=== PATIENT | female | born 1960 | race Caucasian/White ===

== ENCOUNTER 2016-08-31 04:10 | Inpatient (IN) | payer MEDICARE, OTHER ==
[~2016-08-31] VITALS: Ht 152.4 cm; Wt 58.0 kg
[2016-08-31 04:27] VITALS: PULSE 100; RESP 16; TEMP 98.9
[2016-08-31 04:35] VITALS: BP 149/82; PULSE 103; RESP 16; O2SAT 100
[2016-08-31] MEDS ORDERED: LORazepam 2 MG/ML VIAL IM ONE (04:45)
[2016-08-31] MEDS ORDERED: HALOPERIDOL LACTATE 5 MG/ML AMP IM ONE ×2 (04:45→22:30)
--- NOTE | 2016-08-31 04:45 | PD ---
HPI Chief Complaint: Altered Mental Status Time Seen by Provider: 04:36 Travel History International Travel<30 days: No Contact w/Intl Traveler<30days: No Traveled to known affect area: No History of Present Illness HPI 56-year-old female presents to the ER brought in by PD and EMS as a Goncalves act, according to her family has had 1 week history of "departure from reality", agitated behavior, argumentative towards family, disoriented. She apparently became very agitated and tried to attack EMS and PD, had tried to bite them. She is currently fairly disoriented and not cooperative with exam, has to be restrained. Modifying Factors: None Associated Signs & Symptoms: Agitation, disorientation, altered mental status, Goncalves act Risk Factors: Unknown PFSH Past Medical History Medical History: Unable to Obtain Past Surgical History Surgical History: Unable to Obtain Social History Alcohol Use: No Tobacco Use: No Substance Use: No Allergies-Medications (Allergen,Severity, Reaction): Coded Allergies: UNOBTAINABLE (Unverified , 08/31/16) Agitated, disoriented and combative Reported Meds & Prescriptions Reported Meds & Active Scripts Active Reported Hydralazine (Hydralazine HCl) 25 Mg Tab 25 Mg PO BID Take with a meal Morphine ER (Morphine Sulfate) 15 Mg Tab 15 Mg PO Q8H Review of Systems ROS Limitations: Altered Mental Status Physical Exam Narrative GENERAL: Well-nourished, well-developed middle age white female patient who is agitated, disoriented, combative, restrained in the ER. Awake, alert. SKIN: Warm and dry. HEAD: Normocephalic. EYES: No scleral icterus. No injection or drainage. NECK: Supple, trachea midline. CARDIOVASCULAR: Regular rate and rhythm without murmurs, gallops, or rubs. RESPIRATORY: Breath sounds equal bilaterally. No accessory muscle use. GASTROINTESTINAL: Abdomen soft, non-tender, nondistended. MUSCULOSKELETAL: No cyanosis, or edema. BACK: Nontender without obvious deformity. No CVA tenderness. NEUROLOGICAL: Awake and alert, disoriented and agitated. Cranial nerves II through XII intact. Motor and sensory grossly within normal limits. Five out of 5 muscle strength in all muscle groups. Normal speech. Data Data Last Documented VS Vital Signs Date Time Temp Pulse Resp B/P Pulse Ox O2 Delivery O2 Flow Rate FiO2 08/31/16 04:35 103 16 149/82 100 08/31/16 04:27 98.9 Orders Complete Blood Count With Diff (08/31/16 04:36) Comprehensive Metabolic Panel (08/31/16 04:36) Thyroid Stimulating Hormone (08/31/16 04:36) Urinalysis - C+S If Indicated (08/31/16 04:36) Iv Access Insert/Monitor (08/31/16 04:36) Urinary Catheter Insert/Apply (08/31/16 04:36) Psych Screen (08/31/16 04:36) Haloperidol Inj (Haldol Inj) (08/31/16 04:45) Lorazepam Inj (Ativan Inj) (08/31/16 04:45) Restraints Non-Violent MICHAEL.Q3H (08/31/16 04:36) Drug Screen, Random Urine (08/31/16 04:36) Alcohol (Ethanol) (08/31/16 04:36) Ns + Kcl 20 Meq Inj (Ns + Kcl 20 Meq Inj (08/31/16 06:00) Ct Brain W/O Iv Contrast(Rout) (08/31/16 05:50) Labs Laboratory Tests Test 08/31/16 04:40 White Blood Count 8.7 TH/MM3 Red Blood Count 4.66 MIL/MM3 Hemoglobin 14.2 GM/DL Hematocrit 40.2 % Mean Corpuscular Volume 86.3 FL Mean Corpuscular Hemoglobin 30.5 PG Mean Corpuscular Hemoglobin 35.3 % Concent Red Cell Distribution Width 12.4 % Platelet Count 302 TH/MM3 Mean Platelet Volume 8.7 FL Neutrophils (%) (Auto) 70.3 % Lymphocytes (%) (Auto) 20.3 % Monocytes (%) (Auto) 8.1 % Eosinophils (%) (Auto) 0.5 % Basophils (%) (Auto) 0.8 % Neutrophils # (Auto) 6.1 TH/MM3 Lymphocytes # (Auto) 1.8 TH/MM3 Monocytes # (Auto) 0.7 TH/MM3 Eosinophils # (Auto) 0.0 TH/MM3 Basophils # (Auto) 0.1 TH/MM3 CBC Comment DIFF FINAL Differential Comment Urine Color YELLOW Urine Turbidity CLEAR Urine pH 5.5 Urine Specific Prospect 1.006 Urine Protein NEG mg/dL Urine Glucose (UA) NEG mg/dL Urine Ketones TRACE mg/dL Urine Occult Blood NEG Urine Nitrite NEG Urine Bilirubin NEG Urine Urobilinogen LESS THAN 2.0 MG/DL Urine Leukocyte Esterase NEG Urine RBC LESS THAN 1 /hpf Urine WBC 1 /hpf Urine Squamous Epithelial 1 /hpf Cells Urine Hyaline Casts 4 /lpf Microscopic Urinalysis Comment CULT NOT INDICATED Sodium Level 135 MEQ/L Potassium Level 3.0 MEQ/L Chloride Level 101 MEQ/L Carbon Dioxide Level 19.1 MEQ/L Anion Gap 15 MEQ/L Blood Urea Nitrogen 10 MG/DL Creatinine 0.63 MG/DL Estimat Glomerular Filtration 98 ML/MIN Rate Random Glucose 105 MG/DL Calcium Level 9.0 MG/DL Total Bilirubin 0.7 MG/DL Aspartate Amino Transf 21 U/L (AST/SGOT) Alanine Aminotransferase 34 U/L (ALT/SGPT) Alkaline Phosphatase 60 U/L Total Protein 7.3 GM/DL Albumin 4.2 GM/DL Thyroid Stimulating Hormone 0.211 uIU/ML 3rd Gen Urine Opiates Screen POS Urine Barbiturates Screen NEG Urine Amphetamines Screen NEG Urine Benzodiazepines Screen NEG Urine Cocaine Screen NEG Urine Cannabinoids Screen NEG Ethyl Alcohol Level LESS THAN 3 MG/DL MDM Medical Decision Making Medical Screen Exam Complete: Yes Emergency Medical Condition: Yes Medical Record Reviewed: Yes Interpretation(s) Last [address] 08/31/16 0550 Signed Impressions: Service Date/Time: Wednesday, August 31, 2016 06:37 - CONCLUSION: No acute disease. Jitendra Berrios MD Laboratory Tests Test 08/31/16 04:40 Neutrophils (%) (Auto) 70.3 % (16.0-70.0) Monocytes (%) (Auto) 8.1 % (0.0-8.0) Urine Ketones TRACE mg/dL (NEG) Sodium Level 135 MEQ/L (136-145) Potassium Level 3.0 MEQ/L (3.5-5.1) Carbon Dioxide Level 19.1 MEQ/L (21.0-32.0) Thyroid Stimulating Hormone 0.211 uIU/ML 3rd Gen (0.358-3.740) Urine Opiates Screen POS (NEG) Differential Diagnosis Altered mental status, agitationpsychiatric issues versus metabolic issues versus intoxication versus substance use Narrative Course Patient was given Haldol and Ativan in the ER to help calm her agitation. Lab work shows a low potassium and IV's KCl was given in the ER. Case is medically clear for psychiatric evaluation. Diagnosis Primary Impression: Psychosis Disposition: 65 DISC TO PSYCH CARE FACILITY Condition: Stable Deacon Luis MD Aug 31, 2016 04:45
[2016-08-31 04:57] LABS: AUTOMATED NEUTROPHIL # 6.1 TH/MM3 (1.8-7.7); BASOPHIL # 0.1 TH/MM3 (0-0.2); BASOPHIL % 0.8 % (0.0-2.0); EOSINOPHIL % 0.5 % (0.0-4.0); HEMATOCRIT 40.2 % (35.0-46.0); HEMO FLAGS DIFF FINAL; LYMPH % 20.3 % (9.0-44.0); LYMPHOCYTE # 1.8 TH/MM3 (1.0-4.8); MEAN CELL VOLUME 86.3 FL (80.0-100.0); MEAN CORPUSCULAR HEMOGLOBIN 30.5 PG (27.0-34.0); MEAN CORPUSCULAR HGB CONC 35.3 % (32.0-36.0); MONO % 8.1 % (0.0-8.0); NEUT % 70.3 % (16.0-70.0); PLATELET COUNT 302 TH/MM3 (150-450); RED BLOOD COUNT 4.66 MIL/MM3 (4.00-5.30); RED CELL DISTRIBUTION WIDTH 12.4 % (11.6-17.2); WHITE BLOOD COUNT 8.7 TH/MM3 (4.0-11.0)
[2016-08-31 05:03] LABS: AMPHETAMINE, URINE NEG (NEG); BARBITURATES, URINE NEG (NEG); COCAINE, URINE NEG (NEG)
[2016-08-31 05:05] LABS: BLOOD, URINE NEG (NEG); GLUCOSE,URINE NEG (NEG); HYALINE CAST, URINE 4 /lpf (RARE); KETONE, URINE TRACE mg/dL (NEG); NITRITE,URINE NEG (NEG); PH, URINE 5.5 (5.0-8.5); SQUAMOUS EPITHELIAL CELL URINE 1 /hpf (0-5); URINE COLOR YELLOW (YELLW/STRAW)
[2016-08-31 05:06] LABS: COMMENT (UR) CULT NOT INDICATED; CULTURE IF INDICATED CULT NOT INDICATED
[2016-08-31 05:30] LABS: ANION GAP 15 MEQ/L (5-15)
[2016-08-31 05:39] LABS: ALKALINE PHOSPHATASE 60 U/L (45-117); ALT (GPT) 34 U/L (10-53); AST (GOT) 21 U/L (15-37); BICARBONATE 19.1 MEQ/L (21.0-32.0); BLOOD UREA NITROGEN 10 MG/DL (7-18); CHLORIDE 101 MEQ/L (98-107); GLOMERULAR FILTRATION RATE 98 ML/MIN (>89); SODIUM (NA) 135 MEQ/L (136-145); TOTAL BILIRUBIN ADULT 0.7 MG/DL (0.2-1.0)
[2016-08-31] MEDS ORDERED: NS + KCL 20 MEQ INJ 1,000 ML IV ONE (06:00)
--- NOTE | 2016-08-31 06:56 | RADRPT ---
EXAM DATE/TIME: 08/31/2016 06:37 [facility] COMPARISON: No previous studies available for comparison. INDICATIONS : Altered mental status. RADIATION DOSE: 32.21 CTDIvol (mGy) MEDICAL HISTORY : Non-responsive. SURGICAL HISTORY : Non-responsive. ENCOUNTER: Initial ACUITY: 1 week PAIN SCALE: Non-responsive LOCATION: cranial TECHNIQUE: Multiple contiguous axial images were obtained of the head. Using automated exposure control and adj ustment of the mA and/or kV according to patient size, radiation dose was kept as low as reasonably a chievable to obtain optimal diagnostic quality images. FINDINGS: No signs of intracranial hemorrhage, acute infarct, or mass. There is mild volume loss of the white m atter in the parietal and occipital regions with slight associated ventriculomegaly. There are no fra ctures. CONCLUSION: No acute disease. Jitendra Berrios MD on August 31, 2016 at 6:54 Board Certified Radiologist. This report was verified electronically.
[2016-08-31] MEDS ORDERED: MORP1TAB24 PO (06:57)
[2016-08-31] MEDS ORDERED: HYDR25TA35 PO (06:57)
[2016-08-31 11:44] VITALS: BP 129/65; PULSE 84; RESP 18; TEMP 98.2; O2SAT 98
[2016-08-31 15:05] VITALS: BP 150/78; PULSE 80; RESP 18; O2SAT 98
[2016-08-31 17:39] VITALS: BP 148/78; PULSE 72; RESP 18; O2SAT 98
[2016-08-31 22:07] VITALS: BP 145/67; PULSE 83; RESP 19; O2SAT 99
[2016-08-31] MEDS ORDERED: diphenhydrAMINE HCL 50 MG/ML VIAL IM ONE (22:30)
[2016-09-01 02:10] VITALS: BP 125/75; PULSE 81; RESP 18; O2SAT 99
[2016-09-01 06:20] VITALS: BP 150/90; PULSE 74; RESP 18; O2SAT 97
--- NOTE | 2016-09-01 09:29 | PD ---
History of Present Illness Chief Complaint: Altered Mental Status Time Seen by Provider: 09:00 Travel History International Travel<30 Days: No Contact w/Intl Traveler<30days: No Known affected area: No Legal Status Legal Status: Goncalves Act History of Present Illness: History of Present Illness HPI 56-year-old female with no previous psychiatric history who presents to the ER brought in as a Goncalves act. As per the BA report the police were called by her roommate of 30 years reporting that for the past week " the subject has been acting strange, believes that everyone is out to get her and has been agitated and yelling at them, making threats to harm her sister. " When the police arrived she became agitated and picked up a drumstick and held it up like a weapon. Upon arrival to ED she has been agitated and required restraints as well as ETO. As per nursing report she has been intermittently agitated here in [facility]. This morning she is sitting in her room. Awake and alert. She is calm but exhibits lability of mood. Her thoughts are disorganized and I am unable to obtain a full clinical evaluation. She states " " I'm here because I couldn't find anyone to trust. I'm not allowed to be happy. Everywhere I go I see someone who looks like you". As per information from RN in [facility] she has not had any previous psychiatric symptoms. Reviewing her record it is reported that she stopped drinking 3 months ago. As per EMR review no previous contact with [facility]. Negative toxicology except for opiates which are prescribed to her. PFSH Past Medical History Medical History: Unable to Obtain Depression: Yes Cerebral Palsy: Yes Sleep Apnea: Yes (HAS NOT BEEN USING HER C PAP RECENTLY) Thyroid Disease: Yes (HYPERTHYROID) Past Surgical History Surgical History: Unable to Obtain Psychiatric History Psychiatric History Hx Psychiatric Treatment: NONE History of Inpatient Treatment: No Guns or firearms in home: No Social History Born in [place]. Moved to [place] 6 months ago. Lives w her boyfriend of 30 years. On disability Hx Alcohol Use: No (QUIT 3 MONTHS AGO) Hx Tobacco Use: No Hx Substance Use: No Hx of Substance Use Treatment: Yes Family Psychiatric History Unable to obtain Allergies-Medications (Allergen,Severity, Reaction): Coded Allergies: No Known Allergies (Unverified , 08/31/16) Reported Meds & Prescriptions Reported Meds & Active Scripts Active Reported Hydralazine (Hydralazine HCl) 25 Mg Tab 25 Mg PO BID Take with a meal Morphine ER (Morphine Sulfate) 15 Mg Tab 15 Mg PO Q8H Exam Exam Limitations: Psychotic Alert: Yes Mather: Person, Place Mood: Other (l;ability of mood) Affect: Other (lability of affect) Speech: Clear, Illogical, Flight of Ideas Eye Contact: Normal Memory Intact: Comment (not formally tested) Hallucinations: Other (does not appear to be responding to any) Delusions: Yes Delusion Type: Paranoid Suicidal: Ideation (negative) Homicidal: Ideation (negative) Insight/Judgement poor. Impiared MDM Medical Decision Making Medical Record Reviewed: Yes Assessment/Plan 56 year old female with history of 1 week of impaired sleep, paranoia, agitation. She has required restraints as well as ETO since her admission to ED. At this time the patient remains significantly impaired with inability to fully participate in evaluation due to continued symptoms of disorganization. She requires inpatient treatment for further evaluation, to maintain safety and to initiate treatment. Orders Diet Regular Basic (08/31/16 Lunch) Diet Regular Basic (08/31/16 Dinner) Haloperidol Inj (Haldol Inj) (08/31/16 22:30) Diphenhydramine Inj (Benadryl Inj) (08/31/16 22:30) Diet Regular Basic (09/01/16 Breakfast) Results Vital Signs Date Time Temp Pulse Resp B/P Pulse Ox O2 Delivery O2 Flow Rate FiO2 09/01/16 06:20 74 18 150/90 97 Room Air 09/01/16 02:10 81 18 125/75 99 Room Air 08/31/16 22:07 83 19 145/67 99 Room Air 08/31/16 17:39 72 18 148/78 98 Room Air 08/31/16 15:05 80 18 150/78 98 Room Air 08/31/16 11:44 98.2 84 18 129/65 98 Room Air Diagnosis Primary Impression: Psychosis Admitting Information Admitting Physician Requests: Admit (Dr. 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
[2016-09-01] MEDS ORDERED: MAGNESIUM HYDROXIDE SUSP 30 ML CUP PO PRN (09:45)
[2016-09-01] MEDS: hydrALAZINE HCL 25 MG TAB PO SCH ×2 (09:45→19:56)
[2016-09-01] MEDS ORDERED: ALUMINUM/MAGNESIUM/SIMETH 30 ML CUP PO PRN (09:45)
[2016-09-01 10:58] VITALS: BP 150/90; PULSE 74; RESP 18; O2SAT 97
[2016-09-01 11:25] VITALS: BP 136/67; PULSE 89; RESP 18; TEMP 98.5; O2SAT 99
--- NOTE | 2016-09-01 12:35 | HHI.HP ---
Reason for Admit/HPI Reason for Admission According to reports of patient's roommate, she has become increasingly bizarre and psychotic over the last several weeks. She was also unable to provide a cogent history to this physician upon interview. She does not understand why she is in the hospital. She is unable to provide information regarding who she lives with her what her behavior has been like over the last several weeks. When evaluated in the emergency department, the patient was noted to exhibit loose associations and delusional thinking. She also demonstrates a very labile affect and has been repeatedly agitated to the point of dangerousness. She cannot or will not cooperate with this physician's interview at this time. As noted in the emergency department, she is positive for marijuana. Admission Status: Goncalves Act Physical Exam Physical Exam GENERAL: SKIN: Warm and dry. HEAD: Atraumatic. Normocephalic. EYES: Pupils equal and round. No scleral icterus. No injection or drainage. ENT: No nasal bleeding or discharge. Mucous membranes pink and moist. NECK: Trachea midline. No JVD. CARDIOVASCULAR: Regular rate and rhythm. RESPIRATORY: No accessory muscle use. Clear to auscultation. Breath sounds equal bilaterally. GASTROINTESTINAL: Abdomen soft, non-tender, nondistended. Hepatic and splenic margins not palpable. MUSCULOSKELETAL: Extremities without clubbing, cyanosis, or edema. No obvious deformities. NEUROLOGICAL: Awake and alert. No obvious cranial nerve deficits. Motor grossly within normal limits. Five out of 5 muscle strength in the arms and legs. Normal speech. PSYCHIATRIC: Appropriate mood and affect; insight and judgment normal. Vital Signs Vital Signs Date Time Temp Pulse Resp B/P Pulse Ox O2 Delivery O2 Flow Rate FiO2 09/01/16 11:25 98.5 89 18 136/67 99 09/01/16 10:58 74 18 150/90 97 Room Air 09/01/16 06:20 74 18 150/90 97 Room Air 09/01/16 02:10 81 18 125/75 99 Room Air 08/31/16 22:07 83 19 145/67 99 Room Air 08/31/16 17:39 72 18 148/78 98 Room Air 08/31/16 15:05 80 18 150/78 98 Room Air Coded Allergies: No Known Allergies (Unverified , 08/31/16) Assessment/Plan Plan * Involve patient in individual, family and milieu therapies. * Evaluate medication regiment. * Observe and evaluate for appropriate behavior on unit. * Discuss and plan for appropriate after care. Goals * Evaluate symptoms of current psychiatric problem(s) * Stabilize behaviors and improve functionality * Diminish relationship conflicts * Improve academic performance Discharge Criteria * Denies suicidal ideation * Denies homicidal ideation * No evidence of psychosis Dennis Fowler MD Sep 01, 2016 12:35
--- NOTE | 2016-09-01 12:53 | HHI.HP ---
Provisional Diagnosis Admission Date Sep 01, 2016 at 09:35 [place] I. Psychotic disorder Certification of Person's Competence To Provide Express and Informed Consent I have personally examined Lesly Worthington , a person being served at [facility] on, Sep 01, 2016 12:43. Express and informed consent means consent voluntarily given in writing, by a competent person, after sufficient explanation and disclosure of the subject matter involved to enable the person to make a knowing and willful decision without any element of force, fraud, deceit, duress, or other form of constraint or coercion. This person is 18 years of age or older, is not now known to be incompetent to consent to treatment with a guardian advocate, and does not have a health care surrogate or proxy currently making medical treatment decisions. I have found this person to be one of the following: [] Competent to provide express and informed consent, as defined above, for voluntary admission to this facility and is competent to provide express and informed consent for treatment. He/she has the consistent capacity to make well reasoned, willful, and knowing decisions concerning his or her medical or mental health treatment. The person fully and consistently understands the purpose of the admission for examination/placement and is fully capable of personally exercising all rights [place] [x] Incompetent to provide express and informed consent to voluntary admission, and this is incompetent to provide express and informed consent to treatment. The person must be transferred to involuntary status and a petition for a guardian advocate filed with the Circuit Court. [] Refusing to provide express and informed consent to voluntary admission but is competent to provide express and informed consent for treatment. The person must be discharged or transferred to involuntary status. Form shall be completed within 24 hours of a person's arrival at the receiving facility and filed in the clinical record of each person: 1. Admitted on a voluntary basis 2. Permitted to provide express and informed consent to his/her own treatment 3. Allowed to transfer from involuntary to voluntary status 4. Prior to permitting a person to consent to his or her own treatment after having been previously found incompetent to consent to treatment. History of Present Illness Capacity: Lacks Capacity HPI Patient was brought into the emergency department under a Goncalves act. According to her roommate of 30 years, the patient has become more erratic and psychotic over the last week. When she was seen by emergency medical services today, she was physically aggressive towards them and tried to bite them. During her brief stay in the hospital emergency room here at [facility] she was once again found to be psychotic with unpredictable and significant agitation. She required emergency treatment orders of medication and physical restraints due to her dangerousness to self and others. Upon interview, the patient remains unable to speak coherently with this physician. She demonstrates looseness of associations and paranoid delusions. She does feel that others are persecuting her and she has ideas of reference that she has seen this physician before. She cannot provide reasons for her current psychological state but this physician notes she has a history of cerebral palsy as well as thyroid disease. A medicine consult will be obtained regarding the possibility of thyroid induced psychosis. Review of Systems ROS Limitations: Clinical Condition Except as stated in HPI: all other systems reviewed are Neg Past Psych History Psychological trauma history Patient reportedly has no history of psychological trauma. Violence risk - others (6 mos) Patient reportedly has no significant history of violence before this episode began. Violence risk - self (6 mos) Patient reportedly has no risk of violence to self before this episode began. Substance Abuse History Drugs/Alcohol past 12 months Patient reportedly stopped drinking alcohol approximately 3 months ago. She is positive for opiates but these are prescribed to her. Once again, this physician is unclear as to the reason for her need to take opiates. Past Family Social History Coded Allergies: No Known Allergies (Unverified , 08/31/16) Reported Medications Hydralazine 25 Mg Tab25 Mg PO BID #60 TAB Ref 0 Take with a meal 08/31/16 Morphine ER 15 Mg Tab15 Mg PO Q8H Ref 0 08/31/16 Current Medications Medications (Trade) Dose Ordered Sig/Cody Route Start Time Stop Time Status Last Admin (Tylenol) 650 mg Q4H PRN PO 09/01/16 09:45 (Milk Of Magnesia Liq) 30 ml DAILY PRN PO 09/01/16 09:45 (Mag-Al Plus Susp Liq) 30 ml Q6H PRN PO 09/01/16 09:45 (Apresoline) 25 mg BID PO 09/01/16 09:45 Family History Unknown inpatient is unable to provide information. Social History Limited information in the medical record, from the patient's roommate of approximately 30 years. This physician spoke with nursing but has not directly spoke with the patient's roommate. As stated above, the patient has stopped drinking for several months. Patient's Strengths (min. 2) Patient is verbal and appears to be resilient. Physical Exam GENERAL: SKIN: Warm and dry. HEAD: Normocephalic. EYES: No scleral icterus. No injection or drainage. NECK: Supple, trachea midline. No JVD or lymphadenopathy. CARDIOVASCULAR: Regular rate and rhythm without murmurs, gallops, or rubs. RESPIRATORY: Breath sounds equal bilaterally. No accessory muscle use. GASTROINTESTINAL: Abdomen soft, non-tender, nondistended. MUSCULOSKELETAL: No cyanosis, or edema. BACK: Nontender without obvious deformity. No CVA tenderness. Vital Signs Vital Signs Date Time Temp Pulse Resp B/P Pulse Ox O2 Delivery O2 Flow Rate FiO2 09/01/16 11:25 98.5 89 18 136/67 99 09/01/16 10:58 Room Air Mental Status Examination Speech: Rapid Orientation: Person Memory: Impaired (describe) Thought Process: Loose Association Thought Content: Paranoid Hallucination Type: None Attention and Concentration: Easily Distracted Suicidal Ideation: Yes Previous Suicide Attempts: Yes Homicidal Ideation: No Previous Homicide Attempts: No Insight: Poor Judgement: Impulsive Affect: Irritable Affect if Inappropriate: Labile Mood: Oppositional, Irritable Motor Activity: Abnormal gait-specify Assessment & Plan Problem List: (1) Psychotic disorder ICD Code: F29 Assessment & Plan Estimated LOS: days patient requires physical medicine workup in conjunction with a psychiatric evaluation as this is reportedly her first psychotic break at the age of 56. We need to evaluate her for hyperthyroidism or hypothyroidism , Jeanmarie which can lead to psychosis. He also need to do a brain scan to evaluate for a tumor or lesion which might be giving rise to this issue. We will attempt to gather further information from the patient's roommate and any family members that might be available. At this juncture, the patient will be Safe but this physician would like to hold off psychotropic medicines if possible. This physician anticipates the patient will be in the hospital for 4- 7 days. Request HC Surrog/Guard Advoc?: Yes Dennis Fowler MD Sep 01, 2016 12:53
[2016-09-01 22:27] VITALS: BP 171/95; PULSE 84; RESP 16; TEMP 97.9; O2SAT 98
[2016-09-02] MEDS: ACETAMINOPHEN 325 MG TAB PO PRN ×3 (01:14→21:21)
[2016-09-02] MEDS ORDERED: MORPHINE SULFATE 15 MG TAB PO ONE (05:00)
[2016-09-02 05:59] VITALS: BP 157/80; PULSE 75; RESP 18; TEMP 98.1; O2SAT 98
[2016-09-02 06:00] VITALS: RESP 18
[2016-09-02 06:40] LABS: ANION GAP 9 MEQ/L (5-15); BICARBONATE 25.8 MEQ/L (21.0-32.0); BLOOD UREA NITROGEN 7 MG/DL (7-18); CHLORIDE 104 MEQ/L (98-107); GLOMERULAR FILTRATION RATE 105 ML/MIN (>89); SODIUM (NA) 139 MEQ/L (136-145)
[2016-09-02 06:43] LABS: HDL CHOLESTEROL 67.2 MG/DL (40.0-60.0); LDL CHOLESTEROL 97 MG/DL (0-99)
[2016-09-02] MEDS: hydrALAZINE HCL 25 MG TAB PO SCH ×3 (08:19→20:21)
[2016-09-02] MEDS ORDERED: POTASSIUM CHLORIDE 20 MEQ CONTROLLED RELEASE TAB PO ONE (08:45)
[2016-09-02 10:02] LABS: THYROXINE (T4) 10.7 MCG/DL (4.8-13.9)
--- NOTE | 2016-09-02 10:33 | PD.CONS ---
Provisional Diagnosis Admission Date Sep 01, 2016 at 09:35 [place] I. Unspecified psychosis, R/O medical induced psychosis, R/o brief psychotic episode P[place]ling II. Deferred [place]ling III. HTN, cerebral palsy Pawling IV. Difficulty ambulating [place] V. 45 History of Present Illness Service Psychiatry Consult Requested By Primary Care Physician No Primary Care Physician HPI initial H&P 09/01/2016: "Patient was brought into the emergency department under a Goncalves act. According to her roommate of 30 years, the patient has become more erratic and psychotic over the last week. When she was seen by emergency medical services today, she was physically aggressive towards them and tried to bite them. During her brief stay in the hospital emergency room here at [place] she was once again found to be psychotic with unpredictable and significant agitation. She required emergency treatment orders of medication and physical restraints due to her dangerousness to self and others. Upon interview, the patient remains unable to speak coherently with this physician. She demonstrates looseness of associations and paranoid delusions. She does feel that others are persecuting her and she has ideas of reference that she has seen this physician before. She cannot provide reasons for her current psychological state but this physician notes she has a history of cerebral palsy as well as thyroid disease. A medicine consult will be obtained regarding the possibility of thyroid induced psychosis." The patient is a 56-year-old woman, domicile with his significant other in [facility], with a remote history of depression, but no psychiatric hospitalizations, never used any psychotropics in the past, no previous suicidal attempts, medical history of cerebral palsy with residual weakness in lower limbs, hypertension, who was brought to the hospital under Goncalves act initiated by significant other due to bizarre/erratic behavior in the last 2 weeks. On psychiatric evaluation today the patient was found in her room , calm, cooperative and pleasant, she explained that she was brought to the hospital because "I was depressed last 2 days and my friend could not understand me". She says that she was feeling down "for no reason and then I withdrawal a little bit from my significant other and he took it in the wrong way". But, at this moment patient says that she is back to normal, she explains that she is happy, denies depressive symptoms, denies anhedonia, denies hopelessness, denies helplessness, denies allie, denies anxiety, denies perceptual disturbances, denies suicidal and homicidal ideation. During the evaluation patient is talkative, and at times she derails and becomes tangential , making no sense, but she is fully redirectable. During this evaluation no paranoia, no delusions, no agitation, no ideas of reference, no thought controlling, no aggressive behavior could be observed or elicited. Patient is fully oriented 3, no attention deficit observer, no fluctuation of consciousness, no gross cognitive impairment is present. She denies the use of alcohol and illicit drugs. Review of Systems Constitutional: DENIES: Diaphoretic episodes, Fatigue, Fever, Weight gain, Weight loss, Chills, Dizziness, Change in appetite, Night Sweats Endocrine: DENIES: Abnorml menstrual pattern, Heat/cold intolerance, Polydipsia , Polyuria, Polyphagia Eyes: DENIES: Blurred vision, Diplopia, Eye inflammation, Eye pain, Vision loss , Photosensitivity, Double Vision Ears, nose, mouth, throat: DENIES: Tinnitus, Hearing loss, Vertigo, Nasal discharge, Oral lesions, Throat pain, Hoarseness, Ear Pain, Running Nose, Epistaxis, Sinus Pain, Toothache, Odynophagia Respiratory: DENIES: Apneas, Cough, Snoring, Wheezing, Hemoptysis, Sputum production, Shortness of breath Cardiovascular: DENIES: Chest pain, Palpitations, Syncope, Dyspnea on Exertion , PND, Lower Extremity Edema, Orthopnea, Claudication Genitourinary: DENIES: Abnormal vaginal bleeding, Dysmenorrhea, Dyspareunia, Sexual dysfunction, Urinary frequency, Urinary incontinence, Urgency, Hematuria , Dysuria, Nocturia, Vaginal discharge Musculoskeletal: COMPLAINS OF: Joint pain (lower leg pain), DENIES: Muscle aches, Stiffness, Joint Swelling, Back pain, Neck pain Integumentary: DENIES: Abnormal pigmentation, Pruritus, Rash, Nail changes, Breast masses, Breast skin changes, Nipple discharge Hematologic/lymphatic: DENIES: Bruising, Lymphadenopathy Immunologic/allergic: DENIES: Eczema, Urticaria Neurologic: DENIES: Abnormal gait, Headache, Localized weakness, Paresthesias, Seizures, Speech Problems, Tremor, Poor Balance Psychiatric: DENIES: Anxiety, Confusion, Mood changes, Depression, Hallucinations, Agitation, Suicidal Ideation, Homicidal Ideation, Delusions Past Family Social History Coded Allergies: No Known Allergies (Unverified , 3/7/17) Reported Medications Hydralazine 25 Mg Tab25 Mg PO BID #60 TAB Ref 0 Take with a meal 08/31/16 Morphine ER 15 Mg Tab15 Mg PO Q8H Ref 0 08/31/16 Current Medications Medications (Trade) Dose Ordered Sig/Cody Route Start Time Stop Time Status Last Admin (Tylenol) 650 mg Q4H PRN PO 09/01/16 09:45 09/02/16 01:14 (Milk Of Magnesia Liq) 30 ml DAILY PRN PO 09/01/16 09:45 (Mag-Al Plus Susp Liq) 30 ml Q6H PRN PO 09/01/16 09:45 (Apresoline) 25 mg BID PO 09/01/16 09:45 Family History He denies Social History Patient was born and raised in [place], she has been in [place] for 6 months in [place] with her significant other, she is disabled, her highest level of education is a college degree Patient's Strengths (min. 2) Patient is verbal and appears to be resilient. Physical Exam Vital Signs Vital Signs Date Time Temp Pulse Resp B/P Pulse Ox O2 Delivery O2 Flow Rate FiO2 09/02/16 06:00 18 09/02/16 05:59 98.1 75 157/80 98 09/01/16 10:58 Room Air Mental Status Examination Appearance woman, age appearing, good hygiene, street clothing, calm and cooperative Speech: Rapid Orientation: Person Memory: Unremarkable Thought Process: Loose Association Thought Content: Paranoid Hallucination Type: None Attention and Concentration: Easily Distracted Suicidal Ideation: No Previous Suicide Attempts: Yes Homicidal Ideation: No Previous Homicide Attempts: No Insight: Poor Judgement: Impulsive Affect: Irritable Affect if Inappropriate: Labile Mood: Oppositional, Irritable Motor Activity: Abnormal gait-specify Assessment & Plan Problem List: (1) Psychotic disorder Assessment & Plan: I have reviewed Dr. Fowler's documentation and examined this patient and I totally agree and concur with this assessment and plan for this patient. Consult appreciated. ICD Code: F29 Assessment & Plan Estimated LOS: days Request HC Surrog/Guard Advoc?: Yes Manpreet Ely MD Sep 02, 2016 10:33
--- NOTE | 2016-09-02 12:36 | HHI.PYPN ---
Subjective Remarks Pt remains delusional, stating she is going home today because her discharge paperwork has been signed. (She showed this MD pt. rights forms.) She is agitated and appears to be having a mixed manic episode. Threatening to harm others. Review of Systems ROS Limitations: Clinical Condition Except as stated in HPI: all other systems reviewed are Neg Objective Alert: Yes [place]: Person, Place Mood: Agitated, Other (l;ability of mood) Affect: Labile, Other (lability of affect) Memory Intact: Immediate, Comment (not formally tested) Hallucinations: Other (does not appear to be responding to any) Delusions: Yes Delusion Type: Paranoid Suicidal: Ideation (negative) Homicidal: Ideation (negative) Insight/Judgement Markedly impaired. Labs Test 09/02/16 05:59 Sodium Level 139 MEQ/L Potassium Level 3.0 MEQ/L Chloride Level 104 MEQ/L Carbon Dioxide Level 25.8 MEQ/L Anion Gap 9 MEQ/L Blood Urea Nitrogen 7 MG/DL Creatinine 0.59 MG/DL Estimat Glomerular Filtration 105 ML/MIN Rate Random Glucose 139 MG/DL Calcium Level 8.6 MG/DL Magnesium Level 2.0 MG/DL Triglycerides Level 55 MG/DL Cholesterol Level 175 MG/DL LDL Cholesterol 97 MG/DL HDL Cholesterol 67.2 MG/DL Cholesterol/HDL Ratio 2.60 RATIO Thyroxine (T4) 10.7 MCG/DL Vitals/IOs Vital Signs Date Time Temp Pulse Resp B/P Pulse Ox O2 Delivery O2 Flow Rate FiO2 09/02/16 06:00 18 09/02/16 05:59 98.1 75 157/80 98 09/01/16 10:58 Room Air Assessment & Plan Problem List: (1) Psychotic disorder ICD Code: F29 Assessment & Plan Will start pt. on mood stabalizing medication. Evaluate med for tolerability. Obtain more info from roomate. Estimated LOS: 5-7 days Justification for Cont. Inpt. Unable to care for self with CP and threatening behavior. Request HC Surrog/Guard Advoc?: Yes Dennis Fowler MD Sep 02, 2016 12:36
[2016-09-02 14:11] LABS: HEMOGLOBIN A1b 0.8 %; HEMOGLOBIN Ao 85.9 %; HEMOGLOBIN F 0.7 %; HEMOGLOBIN LA1C 2.1 %; HEMOGLOBIN P3 3.5 %
--- NOTE | 2016-09-02 17:45 | PD.CONS ---
HPI Service [facility] Consult Requested By Psychiatric team Reason for Consult assistance with medical management regarding cerebral palsy thyroid disease and first schizophrenic episode at age 56. 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 Patient is currently inpatient psychiatric center with been consulted for assistance with medical management regarding cerebral palsy thyroid disease and first schizophrenic episode at age 56. Patient is sitting in chair appears to be in no acute distress but does appear confused reports over and over again that she is going home today patient has not been discharged. Patient is mostly concerned with getting her pain medication reports she takes MS Contin 15 mg every 8 hours which helps with her bilateral lower extremity pain and muscle spasms. Patient offers no other complaints at this time. Denies shortness of breath chest pain nausea vomiting diarrhea constipation fevers or chills. 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 Past Surgical History , right hip surgery with hardware placement, tendon release bilateral lower extremities Reported Medications Hydralazine (Hydralazine HCl) 25 Mg Tab 25 Mg PO BID Take with a meal Morphine ER (Morphine Sulfate) 15 Mg Tab 15 Mg PO Q8H Active Ordered Medications Current Medications Medications (Trade) Dose Ordered Sig/Cody Route Start Time Stop Time Status Last Admin (Tylenol) 650 mg Q4H PRN PO 09/01/16 09:45 09/02/16 12:41 (Milk Of Magnesia Liq) 30 ml DAILY PRN PO 09/01/16 09:45 (Mag-Al Plus Susp Liq) 30 ml Q6H PRN PO 09/01/16 09:45 (Apresoline) 25 mg BID PO 09/01/16 09:45 (Abilify) 2 mg HS PO 09/02/16 21:00 Family History Father secondary to lung cancer Social History Patient reports she smokes 4-5 cigarettes per day Reports occasional EtOH use but states, "I'm not an alcoholic, or anything." Unable to quantify amount of alcohol she drinks Denies illicit drug use Physical Exam Vital Signs Vital Signs Date Time Temp Pulse Resp B/P Pulse Ox O2 Delivery O2 Flow Rate FiO2 09/02/16 14:35 18 09/02/16 06:00 18 09/02/16 05:59 98.1 75 18 157/80 98 09/01/16 22:27 97.9 84 16 171/95 98 Physical Exam GENERAL: This is a well-nourished, well-developed patient, in no apparent distress. SKIN: No rashes, ecchymoses or lesions. Cool and dry. HEAD: Atraumatic. Normocephalic. No temporal or scalp tenderness. EYES: Extraocular motions intact. No scleral icterus. No injection or drainage. CARDIOVASCULAR: Regular rate and rhythm without murmurs, gallops, or rubs. RESPIRATORY: Clear to auscultation. Breath sounds equal bilaterally. No wheezes , rales, or rhonchi. GASTROINTESTINAL: Abdomen soft, non-tender, nondistended. MUSCULOSKELETAL: Extremities without clubbing, cyanosis, or edema. No joint tenderness, effusion, or edema noted. No calf tenderness. Negative Homans sign bilaterally. NEUROLOGICAL: Awake and alert. Motor and sensory grossly within normal limits. 4 -5out of 5 muscle strength in all muscle groups. Normal speech. Laboratory Laboratory Tests Test 09/02/16 05:59 Sodium Level 139 Potassium Level 3.0 Chloride Level 104 Carbon Dioxide Level 25.8 Anion Gap 9 Blood Urea Nitrogen 7 Creatinine 0.59 Estimat Glomerular Filtration 105 Rate Random Glucose 139 Hemoglobin A1c 5.5 Calcium Level 8.6 Magnesium Level 2.0 Triglycerides Level 55 Cholesterol Level 175 LDL Cholesterol 97 HDL Cholesterol 67.2 Cholesterol/HDL Ratio 2.60 Thyroxine (T4) 10.7 Result Diagram: 09/03/16 0816 Imaging Last Impressions Head CT 08/31/16 0550 Signed Impressions: Service Date/Time: Wednesday, August 31, 2016 06:37 - CONCLUSION: No acute disease. 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 Patient is currently inpatient psychiatric center with been consulted for assistance with medical management regarding cerebral palsy thyroid disease and first schizophrenic episode at age 56. Psychotic disorder management per psychiatric team Cerebral palsy Continue home pain medication MS Jd SR every 8 hours hold for sedation Hyperthyroidism TSH 0.211, T4 10.7 Recommend patient follow-up with outpatient endocrinology/PCP after discharge Hypertension continue patient's home hydralazine Hypokalemia potassium 3.0 replaced magnesium 2.0 BMP in a.m. Sleep apnea patient may use home BiPAP machine DVT prophylaxis patient is ambulatory Discussed with patient as well as nursing Written by Michelle Guzman, acting as scribe for Dr. David on 09/02/16 at 17:55. Attending Statement All or portions of this note were transcribed by scribe Michelle Guzman . I, Dr. Pablo Tam personally performed the history, physical exam, and medical decision making; and confirmed the accuracy of the information in the transcribed note. Authenticated by Dr. Pablo Tam on 09/06/16 at 00:10. Michelle Guzman Sep 02, 2016 17:45 Pablo White MD Sep 06, 2016 00:10
[2016-09-02 18:08] VITALS: BP 164/88; PULSE 78; RESP 18; TEMP 98.3; O2SAT 99
[2016-09-02] MEDS: ARIPiprazole 2 MG TAB PO SCH (20:19)
[2016-09-02] MEDS: MORPHINE SULFATE 15 MG CONTROLLED RELEASE TAB PO SCH (20:20)
[2016-09-03] MEDS: ACETAMINOPHEN 325 MG TAB PO PRN ×3 (01:15→15:01)
[2016-09-03] MEDS: MORPHINE SULFATE 15 MG CONTROLLED RELEASE TAB PO SCH ×2 (02:52→09:38)
[2016-09-03 05:50] VITALS: BP 149/86; PULSE 72; RESP 16; TEMP 98.2; O2SAT 98
[2016-09-03 09:16] LABS: BICARBONATE 25.4 MEQ/L (21.0-32.0); POTASSIUM 3.8 MEQ/L (3.5-5.1)
--- NOTE | 2016-09-03 09:28 | HHI.PYPN ---
Subjective Remarks Patient was seen today for psychiatric reevaluation along with nurse in charge Radha, patient was irritable, talkative, demanding to be discharged, at times loud and tearful, becoming frequently disorganized making several paranoid statements some grandiose delusion noticed "you don't know that I am a social work therapist, and I am a PhD, and I know a lot of psychiatry". Patient stated that yesterday the social work therapist lied to her "because she made me sign the discharge papers, but the psychiatrist told me that she actually made my sing a Goncalves act ". She states that she doesn't trust the staff and she doesn't want to take any medication "because I know I'm going to get the side effects and I am not crazy". Patient denies suicidal or homicidal ideation, she denies visual and auditory hallucinations. But as per nursing report the patient has been disruptive, acting bizarre, hostile, irritable, last night she slept poorly, maybe 3-4 hours. Review of Systems Constitutional: DENIES: Diaphoretic episodes, Fatigue, Fever, Weight gain, Weight loss, Chills, Dizziness, Change in appetite, Night Sweats Endocrine: DENIES: Abnorml menstrual pattern, Heat/cold intolerance, Polydipsia , Polyuria, Polyphagia Eyes: DENIES: Blurred vision, Diplopia, Eye inflammation, Eye pain, Vision loss , Photosensitivity, Double Vision Ears, nose, mouth, throat: DENIES: Tinnitus, Hearing loss, Vertigo, Nasal discharge, Oral lesions, Throat pain, Hoarseness, Ear Pain, Running Nose, Epistaxis, Sinus Pain, Toothache, Odynophagia Respiratory: DENIES: Apneas, Cough, Snoring, Wheezing, Hemoptysis, Sputum production, Shortness of breath Cardiovascular: DENIES: Chest pain, Palpitations, Syncope, Dyspnea on Exertion , PND, Lower Extremity Edema, Orthopnea, Claudication Genitourinary: DENIES: Abnormal vaginal bleeding, Dysmenorrhea, Dyspareunia, Sexual dysfunction, Urinary frequency, Urinary incontinence, Urgency, Hematuria , Dysuria, Nocturia, Vaginal discharge Musculoskeletal: DENIES: Joint pain, Muscle aches, Stiffness, Joint Swelling, Back pain, Neck pain Integumentary: DENIES: Abnormal pigmentation, Pruritus, Rash, Nail changes, Breast masses, Breast skin changes, Nipple discharge Hematologic/lymphatic: DENIES: Bruising, Lymphadenopathy Immunologic/allergic: DENIES: Eczema, Urticaria Neurologic: DENIES: Abnormal gait, Headache, Localized weakness, Paresthesias, Seizures, Speech Problems, Tremor, Poor Balance Psychiatric: COMPLAINS OF: Mood changes, Agitation, Delusions Objective Alert: Yes [place]: Person, Place Mood: Agitated, Angry, Other (l;ability of mood) Affect: Labile, Other (lability of affect) Memory Intact: Immediate, Comment (not formally tested) Hallucinations: Other (does not appear to be responding to any) Delusions: Yes Delusion Type: Paranoid Suicidal: Ideation (negative) Homicidal: Ideation (negative) Insight/Judgement poor Vitals/IOs Vital Signs Date Time Temp Pulse Resp B/P Pulse Ox O2 Delivery O2 Flow Rate FiO2 09/03/16 05:50 98.2 72 16 149/86 98 09/01/16 10:58 Room Air Intake and Output 09/02/16 09/02/16 09/03/16 08:00 16:00 00:00 Intake Total 240 ml 840 ml 360 ml Balance 240 ml 840 ml 360 ml Assessment & Plan Problem List: (1) Psychotic disorder Assessment & Plan: On psychiatrically reevaluation today patient is acutely psychotic, manic like, I will start Depakote 250 mg twice a day, and we will continue Abilify 2 mg daily for mood stabilization and psychosis. Psychoeducation, supportive motivation provided. Meeting with significant other still pending. ICD Code: F29 Assessment & Plan Estimated LOS: days Justification for Cont. Inpt. Patient continues to be disorganized, manic-like, refusing to take her medication, she needs psychiatric hospitalization for stabilization. Request HC Surrog/Guard Advoc?: Yes Problem Qualifiers (1) Psychotic disorder: Qualified Code: F29 - Psychosis, unspecified psychosis type Manpreet Ely MD Sep 03, 2016 09:28
[2016-09-03] MEDS: ARIPiprazole 2 MG TAB PO SCH (09:37)
[2016-09-03] MEDS: DIVALPROEX SODIUM DELAYED RELEASE 250 MG TAB PO SCH ×2 (09:37→20:13)
[2016-09-03] MEDS: hydrALAZINE HCL 25 MG TAB PO SCH ×2 (09:38→20:13)
[2016-09-03] MEDS: NICOTINE 14 MG/24 HR PATCH TD SCH ×2 (10:30→16:23)
[2016-09-03] MEDS ORDERED: MORPHINE SULFATE 60 MG CONTROLLED RELEASE TAB PO SCH (10:45)
[2016-09-03] MEDS ORDERED: MORPHINE SULFATE 15 MG CONTROLLED RELEASE TAB PO PRN (11:15)
[2016-09-03] MEDS ORDERED: LORazepam 1 MG TAB PO PRN (13:45)
--- NOTE | 2016-09-03 14:20 | HHI.PR ---
Subjective Remarks Follow-up hypothyroidism, cerebral palsy, hypertension, sleep apnea. Patient seen today at inpatient psychiatric unit continues to complain of pain requesting her home pain medication be restarted including morphine SR 60 mg twice a day and morphine sulfate immediate release 15 units 4 times a day as needed.- This was verified with [facility] pharmacy. Patient also requested to be discharged to go be with her dog who she reports is ill. Patient denies shortness of breath chest pain nausea vomiting diarrhea comes patient appears or chills. Objective Vitals Vital Signs Date Time Temp Pulse Resp B/P Pulse Ox O2 Delivery O2 Flow Rate FiO2 09/03/16 05:50 98.2 72 16 149/86 98 09/02/16 18:08 98.3 78 18 164/88 99 09/02/16 14:35 18 I/O 09/02/16 09/02/16 09/02/16 09/03/16 09/03/16 09/03/16 07:00 15:00 23:00 07:00 15:00 23:00 Intake Total 240 ml 840 ml 120 ml 600 ml Balance 240 ml 840 ml 120 ml 600 ml Intake Oral 240 ml 840 ml 120 ml 600 ml # Voids 1 1 3 # Bowel Movements 0 0 Result Diagram: 08/31/16 0440 09/03/16 0816 Objective Remarks GENERAL: This is a well-nourished, well-developed patient, in no apparent distress. SKIN: No rashes, ecchymoses or lesions. Cool and dry. HEAD: Atraumatic. Normocephalic. No temporal or scalp tenderness. EYES: Extraocular motions intact. No scleral icterus. No injection or drainage. CARDIOVASCULAR: Regular rate and rhythm without murmurs, gallops, or rubs. RESPIRATORY: Clear to auscultation. Breath sounds equal bilaterally. No wheezes , rales, or rhonchi. GASTROINTESTINAL: Abdomen soft, non-tender, nondistended. MUSCULOSKELETAL: Extremities without clubbing, cyanosis, or edema. No joint tenderness, effusion, or edema noted. No calf tenderness. Negative Homans sign bilaterally. NEUROLOGICAL: Awake and alert. Motor and sensory grossly within normal limits. 4 -5out of 5 muscle strength in all muscle groups. Normal speech. 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 Patient is currently inpatient psychiatric center with been consulted for assistance with medical management regarding cerebral palsy thyroid disease and first schizophrenic episode at age 56. Psychotic disorder management per psychiatric team Cerebral palsy Continue home pain medication MS Contin SR 60 mg twice a day and morphine immediate release 15 mg 4 times a day as needed Hyperthyroidism TSH 0.211, T4 10.7 Recommend patient follow-up with outpatient endocrinology/PCP after discharge Hypertension continue patient's home hydralazine Hypokalemia potassium resolved magnesium 2.0 Sleep apnea patient may use home BiPAP machine DVT prophylaxis patient is ambulatory Discussed with patient as well as nursing Written by Michelle Guzman, acting as scribe for Dr. David on 09/03/16 at 14:19. Attending Statement All or portions of this note were transcribed by scribe Michelle Guzman . I, Dr. Pablo Tam personally performed the history, physical exam, and medical decision making; and confirmed the accuracy of the information in the transcribed note. Authenticated by Dr. Pablo Tam on 09/06/16 at 15:59. Michelle Guzman Sep 03, 2016 14:20 Pablo White MD Sep 06, 2016 16:00
[2016-09-03 17:25] VITALS: BP 155/91; PULSE 91; RESP 17; TEMP 98; O2SAT 98
[2016-09-03] MEDS: DOCUSATE SODIUM 50 MG/SENNA 8.6 MG TAB PO SCH ×2 (20:13→20:15)
[2016-09-03] MEDS: MORPHINE SULFATE 60 MG CONTROLLED RELEASE TAB PO SCH (20:14)
[2016-09-03] MEDS ORDERED: LORazepam 2 MG/ML VIAL IM PRN (23:00)
[2016-09-04] VITALS: BP 162/95; PULSE 106; RESP 16; TEMP 98.1
[2016-09-04 05:38] VITALS: BP 104/64; PULSE 79; RESP 15; TEMP 97.2; O2SAT 99
[2016-09-04] MEDS: ACETAMINOPHEN 325 MG TAB PO PRN (06:11)
[2016-09-04] MEDS: hydrALAZINE HCL 25 MG TAB PO SCH ×2 (08:18→20:58)
[2016-09-04] MEDS: DIVALPROEX SODIUM DELAYED RELEASE 250 MG TAB PO SCH ×2 (08:19→20:57)
[2016-09-04] MEDS: NICOTINE 14 MG/24 HR PATCH TD SCH (08:19)
[2016-09-04] MEDS: MORPHINE SULFATE 60 MG CONTROLLED RELEASE TAB PO SCH ×2 (08:19→20:58)
[2016-09-04] MEDS: DOCUSATE SODIUM 50 MG/SENNA 8.6 MG TAB PO SCH ×2 (08:19→21:00)
[2016-09-04] MEDS: POLYETHYLENE GLYCOL 17 GM PKG PO SCH (08:20)
--- NOTE | 2016-09-04 10:17 | HHI.PYPN ---
Subjective Remarks Patient was seen and discussed with the staff technologist. No complaints were voiced. Patient claimed that she is been taking medication. No side effects were complained. Denied any auditory or visual hallucinations. She was walking with the help of a walker. Her thoughts were organized. She denied any suicidal and/or homicidal ideation intentions or plan. She is compliant in taking medication and willing to take the medication upon discharge. No behavior or management problem reported continue with the same treatment Review of Systems Except as stated in HPI: all other systems reviewed are Neg Psychiatric: COMPLAINS OF: Mood changes, Depression Objective Alert: Yes [place]: Person, Place, Situation Mood: Calm, Depressed, Other (l;ability of mood) Affect: Labile, Other (lability of affect) Memory Intact: Immediate, Comment (not formally tested but it seems intact) Hallucinations: Other (does not appear to be responding to any) Delusions: Yes Delusion Type: Paranoid Suicidal: Ideation (negative) Homicidal: Ideation (negative) Insight/Judgement Limited Vitals/IOs Vital Signs Date Time Temp Pulse Resp B/P Pulse Ox O2 Delivery O2 Flow Rate FiO2 09/04/16 05:38 97.2 79 15 104/64 99 09/01/16 10:58 Room Air Intake and Output 09/03/16 09/03/16 09/04/16 08:00 16:00 00:00 Intake Total 360 ml 720 ml Balance 360 ml 720 ml Assessment & Plan Problem List: (1) Psychotic disorder ICD Code: F29 Assessment & Plan Estimated LOS: days Justification for Cont. Inpt. Monitoring of the medication and risk of decompensation Request HC Surrog/Guard Advoc?: Yes Problem Qualifiers (1) Psychotic disorder: Qualified Code: F29 - Psychosis, unspecified psychosis type James Brown MD Sep 04, 2016 10:17
--- NOTE | 2016-09-04 13:47 | HHI.PR ---
Subjective Remarks Follow-up hypothyroidism, cerebral palsy, hypertension, sleep apnea. Patient seen today at inpatient psychiatric unit . Patient seen walking around the unit with a walker, complaining of right ankle swelling. Reports right ankle has been swollen since she cam in and is painful described as aching. Patient denies shortness of breath chest pain nausea vomiting diarrhea comes patient appears or chills. Objective Vitals Vital Signs Date Time Temp Pulse Resp B/P Pulse Ox O2 Delivery O2 Flow Rate FiO2 09/04/16 05:38 97.2 79 15 104/64 99 09/04/16 00:00 98.1 106 16 162/95 09/03/16 17:25 98.0 91 17 155/91 98 I/O 09/03/16 09/03/16 09/03/16 09/04/16 09/04/16 09/04/16 07:00 15:00 23:00 07:00 15:00 23:00 Intake Total 600 ml 720 ml 0 ml 720 ml Balance 600 ml 720 ml 0 ml 720 ml Intake Oral 600 ml 720 ml 0 ml 720 ml # Voids 3 1 1 # Bowel Movements 0 Result Diagram: 08/31/16 0440 09/03/16 0816 Objective Remarks GENERAL: This is a well-nourished, well-developed patient, in no apparent distress. SKIN: No rashes, ecchymoses or lesions. Cool and dry. HEAD: Atraumatic. Normocephalic. No temporal or scalp tenderness. EYES: Extraocular motions intact. No scleral icterus. No injection or drainage. CARDIOVASCULAR: Regular rate and rhythm without murmurs, gallops, or rubs. RESPIRATORY: Clear to auscultation. Breath sounds equal bilaterally. No wheezes , rales, or rhonchi. GASTROINTESTINAL: Abdomen soft, non-tender, nondistended. MUSCULOSKELETAL: Right foot ankle and calf edematous with ecchymosis into foot area. NEUROLOGICAL: Awake and alert. Motor and sensory grossly within normal limits. 4 -5out of 5 muscle strength in all muscle groups. Normal speech. 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 Patient is currently inpatient psychiatric center with been consulted for assistance with medical management regarding cerebral palsy thyroid disease and first schizophrenic episode at age 56. Psychotic disorder management per psychiatric team Cerebral palsy Continue home pain medication MS Contin SR 60 mg twice a day and morphine immediate release 15 mg 4 times a day as needed Subclinical Hyperthyroidism TSH 0.211, T4 10.7 Recommend patient follow-up with outpatient endocrinology/PCP after discharge Hypertension continue patient's home hydralazine Hypokalemia potassium resolved magnesium 2.0 right ankle and foot edema- x ray right foot and ankle US BLE Sleep apnea patient may use home BiPAP machine DVT prophylaxis patient is ambulatory Discussed with patient as well as nursing Written by Michelle Guzman, acting as scribe for Dr. David on 09/04/16 at 13:47. Attending Statement All or portions of this note were transcribed by scribe Michelle Guzman I , Dr. Pablo Tam personally performed the history, physical exam, and medical decision making; and confirmed the accuracy of the information in the transcribed note. Authenticated by Dr. Pablo Tam on 09/06/16 at 16:01. Michelle Guzman Sep 04, 2016 13:47 Pablo White MD Sep 06, 2016 16:01
--- NOTE | 2016-09-04 17:33 | RADRPT ---
EXAM DATE/TIME: 09/04/2016 17:08 [facility] COMPARISON: No previous studies available for comparison. INDICATIONS : Right foot pain and swelling MEDICAL HISTORY : None. SURGICAL HISTORY : None. ENCOUNTER: Initial ACUITY: 3 days PAIN SCORE: 5/10 LOCATION: Right Foot FINDINGS: Mildly comminuted oblique midshaft fracture seen as the right fifth metacarpal. There is about 5 mm o f medial displacement. Articular surfaces are intact. No subluxations. Severe hallux valgus with degenerative changes of the first metatarsophalangeal joint and sesamoids n oted. CONCLUSION: 1. Mildly displaced and mildly comminuted oblique mid shaft fracture of the fifth metacarpal. 2. Hallux valgus with chronic degenerative changes. Gareth Ng MD on September 04, 2016 at 17:30 Board Certified Radiologist. This report was verified electronically.
--- NOTE | 2016-09-04 17:34 | RADRPT ---
EXAM DATE/TIME: 09/04/2016 17:09 [facility] COMPARISON: No previous studies available for comparison. INDICATIONS : Right ankle pain with swelling MEDICAL HISTORY : None. SURGICAL HISTORY : None. ENCOUNTER: Initial ACUITY: 2 days PAIN SCORE: 10/10 LOCATION: Right ankle FINDINGS: Three view exam was performed of the right ankle. The bony structures are in normal alignment. No e vidence of fracture, dislocation, or soft tissue swelling. The ankle mortise is intact. No radiopaq ue foreign bodies are seen. Bony mineralization is normal. CONCLUSION: No fracture or subluxation of the right ankle. Gareth Ng MD on September 04, 2016 at 17:32 Board Certified Radiologist. This report was verified electronically.
[2016-09-04 18:39] VITALS: BP 138/66; PULSE 101; RESP 18; TEMP 97.7; O2SAT 97
--- NOTE | 2016-09-04 21:09 | RADRPT ---
EXAM DATE/TIME: 09/04/2016 18:40 [facility] COMPARISON: No previous studies available for comparison. INDICATIONS : Bilateral leg pain. MEDICAL HISTORY : Hypothyroidism. Left leg contractures. Cerebral palsy. Sleep apnea. Depression. SURGICAL HISTORY : None. ENCOUNTER: Initial ACUITY: 2 day PAIN SCORE: 4/10 LOCATION: Bilateral legs. TECHNIQUE: Venous ultrasound of the left and right leg was performed from the inguinal ligament to the proximal calf. Real-time, color Doppler and spectral tracing, compression and augmentation techniques were us ed. FINDINGS: RIGHT LEG: There is normal compressibility of the deep venous system from the inguinal region to the proximal ca lf. No echogenic clot is seen in the lumen of the common femoral, femoral, popliteal, and posterior tibial veins. There is a normal response of the venous system to proximal and distal augmentation an d respiration. LEFT LEG: There is normal compressibility of the deep venous system from the inguinal region to the proximal ca lf. No echogenic clot is seen in the lumen of the common femoral, femoral, popliteal, and posterior tibial veins. There is a normal response of the venous system to proximal and distal augmentation an d respiration. CONCLUSION: No DVT of either lower extremity. Gareth Ng MD on September 04, 2016 at 21:07 Board Certified Radiologist. This report was verified electronically.
[2016-09-04] MEDS: ARIPiprazole 2 MG TAB PO SCH (21:45)
[2016-09-05] MEDS: ACETAMINOPHEN 325 MG TAB PO PRN ×3 (01:03→19:58)
[2016-09-05] MEDS: MORPHINE SULFATE 15 MG TAB PO PRN ×2 (03:34→17:40)
[2016-09-05 05:53] VITALS: BP 134/80; PULSE 98; RESP 18; TEMP 97.6; O2SAT 97
[2016-09-05] MEDS: MORPHINE SULFATE 60 MG CONTROLLED RELEASE TAB PO SCH ×2 (08:14→20:23)
[2016-09-05] MEDS: NICOTINE 14 MG/24 HR PATCH TD SCH (08:14)
[2016-09-05] MEDS: hydrALAZINE HCL 25 MG TAB PO SCH ×2 (08:15→20:23)
[2016-09-05] MEDS: DIVALPROEX SODIUM DELAYED RELEASE 250 MG TAB PO SCH ×2 (08:15→20:23)
[2016-09-05] MEDS: POLYETHYLENE GLYCOL 17 GM PKG PO SCH (08:15)
[2016-09-05] MEDS: DOCUSATE SODIUM 50 MG/SENNA 8.6 MG TAB PO SCH ×2 (08:15→20:23)
--- NOTE | 2016-09-05 10:30 | HHI.PYPN ---
Subjective Remarks Patient was seen and discussed with the catering staff member. Patient claimed that she still has been complaining of pain is 9 out of 1-10. Patient wants to go home soon. She denied any other problem. Denied any suicidal ideation intentions or plan. Her thoughts were organized. She was walking with the help of a walker. Denied any auditory or visual hallucinations. No side effects were complained. Continue with the same treatment Review of Systems Except as stated in HPI: all other systems reviewed are Neg Psychiatric: COMPLAINS OF: Mood changes, Depression Objective Alert: Yes Vida: Person, Place, Situation Mood: Calm, Depressed, Other (l;ability of mood) Affect: Labile, Other (lability of affect) Memory Intact: Immediate, Comment (not formally tested but it seems intact) Hallucinations: Other (does not appear to be responding to any) Delusions: Yes Delusion Type: Paranoid Suicidal: Ideation (negative) Homicidal: Ideation (negative) Insight/Judgement Fair Vitals/IOs Vital Signs Date Time Temp Pulse Resp B/P Pulse Ox O2 Delivery O2 Flow Rate FiO2 09/05/16 05:53 97.6 98 18 134/80 97 09/01/16 10:58 Room Air Intake and Output 09/04/16 09/04/16 09/05/16 08:00 16:00 00:00 Intake Total 0 ml 720 ml 2160 ml Balance 0 ml 720 ml 2160 ml Assessment & Plan Problem List: (1) Psychotic disorder ICD Code: F29 Assessment & Plan Estimated LOS: days Justification for Cont. Inpt. Monitoring of the medication to stabilize her mood Request HC Surrog/Guard Advoc?: Yes Problem Qualifiers (1) Psychotic disorder: Qualified Code: F29 - Psychosis, unspecified psychosis type James Brown MD Sep 05, 2016 10:30
--- NOTE | 2016-09-05 10:58 | HHI.PR ---
Subjective Remarks Follow-up hypothyroidism, cerebral palsy, hypertension, sleep apnea. Patient seen today at inpatient psychiatric unit . Patient seen walking around the unit with a walker, complaining of right ankle swelling. R foot x ray reveals: mildly displaced and mildly comminuted oblique mid shaft fracture of the fifth metacarpal. 2. Hallux valgus with chronic degenerative changes. . Patient denies shortness of breath chest pain nausea vomiting diarrhea comes patient appears or chills. Objective Vitals Vital Signs Date Time Temp Pulse Resp B/P Pulse Ox O2 Delivery O2 Flow Rate FiO2 09/05/16 05:53 97.6 98 18 134/80 97 09/04/16 18:39 97.7 101 18 138/66 97 I/O 09/04/16 09/04/16 09/04/16 09/05/16 09/05/16 09/05/16 07:00 15:00 23:00 07:00 15:00 23:00 Intake Total 0 ml 720 ml 2160 ml 0 ml 360 ml Balance 0 ml 720 ml 2160 ml 0 ml 360 ml Intake Oral 0 ml 720 ml 2160 ml 0 ml 360 ml # Voids 1 2 1 Result Diagram: 09/03/16 0816 Imaging Last Impressions Lower Extremity Ultrasound 09/04/16 0000 Signed Impressions: Service Date/Time: Sunday, September 04, 2016 18:40 - CONCLUSION: No DVT of either lower extremity. Gareth Ng MD Foot X-Ray 09/04/16 0000 Signed Impressions: Service Date/Time: Sunday, September 04, 2016 17:08 - CONCLUSION: 1. Mildly displaced and mildly comminuted oblique mid shaft fracture of the fifth metacarpal. 2. Hallux valgus with chronic degenerative changes. Gareth Ng MD Ankle X-Ray 09/04/16 0000 Signed Impressions: Service Date/Time: Sunday, September 04, 2016 17:09 - CONCLUSION: No fracture or subluxation of the right ankle. Gareth Ng MD Head CT 08/31/16 0550 Signed Impressions: Service Date/Time: Wednesday, August 31, 2016 06:37 - CONCLUSION: No acute disease. Jitendra Berrios MD Objective Remarks GENERAL: This is a well-nourished, well-developed patient, in no apparent distress. SKIN: No rashes, ecchymoses or lesions. Cool and dry. HEAD: Atraumatic. Normocephalic. No temporal or scalp tenderness. EYES: Extraocular motions intact. No scleral icterus. No injection or drainage. CARDIOVASCULAR: Regular rate and rhythm without murmurs, gallops, or rubs. RESPIRATORY: Clear to auscultation. Breath sounds equal bilaterally. No wheezes , rales, or rhonchi. GASTROINTESTINAL: Abdomen soft, non-tender, nondistended. MUSCULOSKELETAL: Right foot ankle and calf edematous with ecchymosis into foot area. NEUROLOGICAL: Awake and alert. Motor and sensory grossly within normal limits. 4 -5out of 5 muscle strength in all muscle groups. Normal speech. 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 Patient is currently inpatient psychiatric center with been consulted for assistance with medical management regarding cerebral palsy thyroid disease and first schizophrenic episode at age 56. Psychotic disorder management per psychiatric team Cerebral palsy Continue home pain medication MS Contin SR 60 mg twice a day and morphine immediate release 15 mg 4 times a day as needed Subclinical Hyperthyroidism TSH 0.211, T4 10.7 Recommend patient follow-up with outpatient endocrinology/PCP after discharge Hypertension continue patient's home hydralazine Hypokalemia potassium resolved magnesium 2.0 right ankle and foot edema- x ray right foot reviewed and reveals: Mildly displaced and mildly comminuted oblique mid shaft fracture of the fifth metacarpal. 2. Hallux valgus with chronic degenerative changes- consult orthopedics US BLE negative for DVT Right ankle X ray no acute No fracture or subluxation of the right ankle Sleep apnea patient may use home BiPAP machine DVT prophylaxis patient is ambulatory Discussed with patient as well as nursing Written by Michelle Guzman, acting as scribe for Dr. David on 09/05/16 at 10:56. Attending Statement All or portions of this note were transcribed by scribe Follow-up hypothyroidism , cerebral palsy, hypertension, sleep apnea. I, Dr. Pablo Tam personally performed the history, physical exam, and medical decision making; and confirmed the accuracy of the information in the transcribed note. Authenticated by Dr. Pablo Tam on 09/06/16 at 16:02. Michelle Guzman Sep 05, 2016 10:58 Pablo White MD Sep 06, 2016 16:03
--- NOTE | 2016-09-05 12:58 | PD.CONS ---
cc: Dennis Mike MD HPI Service Orthopedic Surgeons Consult Requested By Psychiatric service Reason for Consult Right fifth metatarsal fracture Primary Care Physician No Primary Care Physician Admission Diagnosis psychosis Diagnoses: (1) Psychotic disorder (2) Fracture of fifth metatarsal bone of right foot Chief Complaint: Right foot and ankle pain History of Present Illness The patient is a 56-year-old woman, domicile with his significant other in [place], with a remote history of depression, but no psychiatric hospitalizations, never used any psychotropics in the past, no previous suicidal attempts, medical history of cerebral palsy with residual weakness in lower limbs, hypertension, who was brought to the hospital under [place] act initiated by significant other due to bizarre/erratic behavior in the last 2 weeks. The patient's history is somewhat vague although she did states she fell 4 days ago. This was around the time of her admission. Because of persistent pain in the foot and ankle regions x-rays were completed which revealed a fifth metatarsal fracture. Orthopedic consultation was therefore requested. Patient does relate a previous history of a similar problem treated with a boot. She does relate some swelling of the left lower extremity as well but denies pain in the other 3 extremities. 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 Past Surgical History , right hip surgery with hardware placement, tendon release bilateral lower extremities Reported Medications Hydralazine (Hydralazine HCl) 25 Mg Tab 25 Mg PO BID Take with a meal Morphine ER (Morphine Sulfate) 15 Mg Tab 15 Mg PO Q8H Active Ordered Medications Current Medications Medications (Trade) Dose Ordered Sig/Cody Route Start Time Stop Time Status Last Admin (Tylenol) 650 mg Q4H PRN PO 09/01/16 09:45 09/02/16 12:41 (Milk Of Magnesia Liq) 30 ml DAILY PRN PO 09/01/16 09:45 (Mag-Al Plus Susp Liq) 30 ml Q6H PRN PO 09/01/16 09:45 (Apresoline) 25 mg BID PO 09/01/16 09:45 (Abilify) 2 mg HS PO 09/02/16 21:00 Family History Father secondary to lung cancer Social History Patient reports she smokes 4-5 cigarettes per day Reports occasional EtOH use but states, "I'm not an alcoholic, or anything." Unable to quantify amount of alcohol she drinks Denies illicit drug use Allergies: Coded Allergies: No Known Allergies (Unverified , 08/31/16) Active Ordered Medications Current Medications Medications (Trade) Dose Ordered Sig/Cody Route Start Time Stop Time Status Last Admin (Tylenol) 650 mg Q4H PRN PO 09/01/16 09:45 09/05/16 06:24 (Milk Of Magnesia Liq) 30 ml DAILY PRN PO 09/01/16 09:45 (Mag-Al Plus Susp Liq) 30 ml Q6H PRN PO 09/01/16 09:45 (Apresoline) 25 mg BID PO 09/01/16 09:45 09/05/16 08:15 (Depakote Dr) 250 mg Q12HR PO 09/03/16 10:00 09/05/16 08:15 (Habitrol 14 Mg Patch.24 Hr) 1 patch DAILY TD 09/03/16 10:30 09/05/16 08:14 (Msir) 15 mg Q6H PRN PO 09/03/16 10:45 09/05/16 03:34 (Mavis-Colace) 2 tab BID PO 09/03/16 21:00 09/04/16 08:19 (Miralax) 17 gm DAILY PO 09/04/16 09:00 (Oramorph Sr) 60 mg Q12HR PO 09/03/16 21:00 09/05/16 08:14 (Ativan) 1 mg Q12H PRN PO 09/03/16 13:45 (Ativan Inj) 1 mg Q12H PRN IM 09/03/16 23:00 09/03/16 23:15 (Abilify) 2 mg HS PO 09/04/16 21:45 09/04/16 21:45 Reported Meds & Active Scripts Active Reported Hydralazine (Hydralazine HCl) 25 Mg Tab 25 Mg PO BID Take with a meal Morphine ER (Morphine Sulfate) 15 Mg Tab 15 Mg PO Q8H Physical Exam Vital Signs Vital Signs Date Time Temp Pulse Resp B/P Pulse Ox O2 Delivery O2 Flow Rate FiO2 09/05/16 05:53 97.6 98 18 134/80 97 09/04/16 18:39 97.7 101 18 138/66 97 Physical Exam The patient is awake alert and sitting at the bedside. She complains of bilateral lower extremity swelling but pain on the right foot and ankle. There is palpable tenderness over the lateral aspect of the foot. She is partially cooperative with the examination. She is able to move her toes with some restriction. She does relate normal sensation. She has good capillary refill. Result Diagram: 09/03/16 0816 Imaging Last 72 hours Impressions Lower Extremity Ultrasound 09/04/16 0000 Signed Impressions: Service Date/Time: Sunday, September 04, 2016 18:40 - CONCLUSION: No DVT of either lower extremity. Gareth Ng MD Foot X-Ray 09/04/16 0000 Signed Impressions: Service Date/Time: Sunday, September 04, 2016 17:08 - CONCLUSION: 1. Mildly displaced and mildly comminuted oblique mid shaft fracture of the fifth metacarpal. 2. Hallux valgus with chronic degenerative changes. Gareth Ng MD Ankle X-Ray 09/04/16 0000 Signed Impressions: Service Date/Time: Sunday, September 04, 2016 17:09 - CONCLUSION: No fracture or subluxation of the right ankle. Gareth Ng MD Assessment & Plan Problem List: (1) Psychotic disorder (2) Fracture of fifth metatarsal bone of right foot Assessment and Plan The findings were discussed. The patient's right foot fracture is nonoperative. She would benefit from use of a walking boot and can bear full weight to tolerance. Consider physical therapy consult for gait training with ambulatory assist if needed. She can be discharged from an orthopedic standpoint with follow-up in approximately 3 weeks. Dennis Mike MD Sep 05, 2016 12:57
[2016-09-05] MEDS ORDERED: SIMV20TA PO (14:06)
[2016-09-05] MEDS ORDERED: HYDR25TA5 PO (14:06)
[2016-09-05] MEDS ORDERED: LEVO.1 PO (14:06)
[2016-09-05 18:07] VITALS: BP 104/50; PULSE 104; RESP 17; TEMP 97.9; O2SAT 96
[2016-09-05] MEDS: ARIPiprazole 2 MG TAB PO SCH (20:23)
[2016-09-06 06:27] VITALS: BP 130/91; PULSE 99; RESP 18; TEMP 97.7; O2SAT 98
[2016-09-06] MEDS: DOCUSATE SODIUM 50 MG/SENNA 8.6 MG TAB PO SCH ×2 (08:20→20:45)
[2016-09-06] MEDS: POLYETHYLENE GLYCOL 17 GM PKG PO SCH (08:20)
[2016-09-06] MEDS: DIVALPROEX SODIUM DELAYED RELEASE 250 MG TAB PO SCH (08:20)
[2016-09-06] MEDS: MORPHINE SULFATE 60 MG CONTROLLED RELEASE TAB PO SCH ×2 (08:21→20:43)
[2016-09-06] MEDS: NICOTINE 14 MG/24 HR PATCH TD SCH (08:21)
[2016-09-06] MEDS: hydrALAZINE HCL 25 MG TAB PO SCH ×2 (08:21→20:42)
--- NOTE | 2016-09-06 10:36 | HHI.PYPN ---
Subjective Remarks Agency for psychiatric reevaluation today, she was found screaming in the carr requesting to be discharged, she was able to be verbally escalated, but was in her room patient was disorganized, irritable, very labile. She says that she wants to live this hospital because she doesn't trust the staff, she says that she observed last night how the staff was talking about her and making fun of her. She denies suicidal ideation, she denies visual and auditory hallucinations. Patient is oriented 3. Review of Systems Other She denies any somatic complaints at this moment Objective Alert: Yes Gray: Person, Place, Date, Situation Mood: Agitated, Depressed, Other (l;ability of mood) Affect: Labile, Other (irritable) Memory Intact: Immediate, Comment (not formally tested but it seems intact) Hallucinations: Other (does not appear to be responding to any) Delusions: Yes Delusion Type: Paranoid Suicidal: Ideation (negative) Homicidal: Ideation (negative) Insight/Judgement poor Vitals/IOs Vital Signs Date Time Temp Pulse Resp B/P Pulse Ox O2 Delivery O2 Flow Rate FiO2 09/06/16 06:27 97.7 99 18 130/91 98 Intake and Output 09/05/16 09/05/16 09/06/16 08:00 16:00 00:00 Intake Total 0 ml 600 ml 1400 ml Balance 0 ml 600 ml 1400 ml Assessment & Plan Problem List: (1) Psychotic disorder ICD Code: F29 (2) Bipolar 1 disorder, mixed Assessment & Plan: Patient continues to be disorganized, with manic behavior, marked agitation, irritability and lability. Will increase the Depakote to 500 mg twice a day, will increase the Abilify to 5 mg at bedtime, also will add 0.5 mg of Klonopin twice a day to control agitation. Check Depakote levels. ICD Code: F31.60 Assessment & Plan Estimated LOS: days Justification for Cont. Inpt. Patient is acutely manic/delusional needs to continue psychiatric hospitalization for stabilization. Request HC Surrog/Guard Advoc?: Yes Problem Qualifiers (1) Psychotic disorder: Qualified Code: F29 - Psychosis, unspecified psychosis type Manpreet Ely MD Sep 06, 2016 10:36
[2016-09-06] MEDS: clonazePAM 0.5 MG TAB PO SCH ×2 (12:16→20:44)
[2016-09-06] MEDS: ACETAMINOPHEN 325 MG TAB PO PRN ×2 (14:47→21:07)
--- NOTE | 2016-09-06 16:13 | HHI.PR ---
Subjective Remarks Follow-up hypothyroidism, cerebral palsy, hypertension, sleep apnea. c/o of some right foot states pain medications helping but it takes to long to get them. denies cp/sob no fevers or chills. Objective Vitals Vital Signs Date Time Temp Pulse Resp B/P Pulse Ox O2 Delivery O2 Flow Rate FiO2 09/06/16 06:27 97.7 99 18 130/91 98 09/05/16 18:07 97.9 104 17 104/50 96 I/O 09/05/16 09/05/16 09/05/16 09/06/16 09/06/16 09/06/16 07:00 15:00 23:00 07:00 15:00 23:00 Intake Total 0 ml 600 ml 1400 ml 120 ml 800 ml Balance 0 ml 600 ml 1400 ml 120 ml 800 ml Intake Oral 0 ml 600 ml 1400 ml 120 ml 800 ml # Voids 1 1 1 2 Result Diagram: 09/03/16 0816 Imaging Last Impressions Lower Extremity Ultrasound 09/04/16 0000 Signed Impressions: Service Date/Time: Sunday, September 04, 2016 18:40 - CONCLUSION: No DVT of either lower extremity. Gareth Ng MD Foot X-Ray 09/04/16 0000 Signed Impressions: Service Date/Time: Sunday, September 04, 2016 17:08 - CONCLUSION: 1. Mildly displaced and mildly comminuted oblique mid shaft fracture of the fifth metacarpal. 2. Hallux valgus with chronic degenerative changes. Gareth Ng MD Ankle X-Ray 09/04/16 0000 Signed Impressions: Service Date/Time: Sunday, September 04, 2016 17:09 - CONCLUSION: No fracture or subluxation of the right ankle. Gareth Ng MD Head CT 08/31/16 0550 Signed Impressions: Service Date/Time: Wednesday, August 31, 2016 06:37 - CONCLUSION: No acute disease. Jitendra Berrios MD Objective Remarks GENERAL: This is a well-nourished, well-developed patient, in no apparent distress. SKIN: No rashes, ecchymoses or lesions. Cool and dry. HEAD: Atraumatic. Normocephalic. No temporal or scalp tenderness. EYES: Extraocular motions intact. No scleral icterus. No injection or drainage. CARDIOVASCULAR: Regular rate and rhythm without murmurs, gallops, or rubs. RESPIRATORY: Clear to auscultation. Breath sounds equal bilaterally. No wheezes , rales, or rhonchi. GASTROINTESTINAL: Abdomen soft, non-tender, nondistended. MUSCULOSKELETAL: Right foot ankle and calf edematous with ecchymosis into foot area. Patient also has bilateral foot deformity and lower extremity contractures. Walking boot on right foot. NEUROLOGICAL: Awake and alert. Motor and sensory grossly within normal limits. 4 -5out of 5 muscle strength in all muscle groups. Normal speech. Medications and IVs Current Medications Medications (Trade) Dose Ordered Sig/Cody Route Start Time Stop Time Status Last Admin (Tylenol) 650 mg Q4H PRN PO 09/01/16 09:45 09/06/16 14:47 (Milk Of Magnesia Liq) 30 ml DAILY PRN PO 09/01/16 09:45 (Mag-Al Plus Susp Liq) 30 ml Q6H PRN PO 09/01/16 09:45 (Apresoline) 25 mg BID PO 09/01/16 09:45 09/06/16 08:21 (Habitrol 14 Mg Patch.24 Hr) 1 patch DAILY TD 09/03/16 10:30 09/06/16 08:21 (Msir) 15 mg Q6H PRN PO 09/03/16 10:45 09/05/16 17:40 (Mavis-Colace) 2 tab BID PO 09/03/16 21:00 09/06/16 08:20 (Miralax) 17 gm DAILY PO 09/04/16 09:00 09/06/16 08:20 (Oramorph Sr) 60 mg Q12HR PO 09/03/16 21:00 09/06/16 08:21 (Ativan) 1 mg Q12H PRN PO 09/03/16 13:45 (Ativan Inj) 1 mg Q12H PRN IM 09/03/16 23:00 09/03/16 23:15 (Abilify) 5 mg DAILY PO 09/07/16 09:00 (Depakote Dr) 500 mg Q12HR PO 09/06/16 21:00 (KlonoPIN) 0.5 mg Q12HR PO 09/06/16 10:45 09/06/16 12:16 Urinary Catheter: No Vascular Central Line Catheter: No A/P Problem List: (1) Psychotic disorder ICD Code: F29 Status: Acute (2) Fracture of fifth metatarsal bone of right foot ICD Code: S92.351A Status: Acute Assessment and Plan This is a 56 year old female patient with past medical history which includes cerebral palsy, hypothyroidism, sleep apnea and wears CPAP intermittently and 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 Patient is currently inpatient psychiatric center with been consulted for assistance with medical management regarding cerebral palsy thyroid disease and first schizophrenic episode at age 56. Psychotic disorder management per psychiatric team Patient more agitated and manic earlier today. Psychiatry increased the patient's depakote to 500 mg BID, increased abilify to 5 mg at bedtime and added Klonopin 0.5 mg po 2 x day. Cerebral palsy Continue home pain medication MS Contin SR 60 mg twice a day and morphine immediate release 15 mg 4 times a day as needed Subclinical Hyperthyroidism TSH 0.211, T4 10.7 Recommend patient follow-up with outpatient endocrinology/PCP after discharge Hypertension continue patient's home hydralazine - bp stable. Hypokalemia potassium resolved. Continue to monitor BMP. magnesium 2.0 right ankle and foot edema- x ray right foot reviewed and reveals: Mildly displaced and mildly comminuted oblique mid shaft fracture of the fifth metacarpal. 2. Hallux valgus with chronic degenerative changes- consult orthopedics US BLE negative for DVT Right ankle X ray no acute No fracture or subluxation of the right ankle 09/06 appreciate orthopedics consult - foot fracture is nonoperative. PT consulted and recommended walking boot and can bear full weight to tolerance. Discussed case with PT. Patient should be discharged to rehab. As per Pt high risk for fall should be OOB with assistance. Sleep apnea patient may use home BiPAP machine DVT prophylaxis patient is ambulatory Discussed with patient as well as nursing Problem Qualifiers (1) Psychotic disorder: Qualified Code: F29 - Psychosis, unspecified psychosis type Pablo White MD Sep 06, 2016 16:13
[2016-09-06 20:16] VITALS: BP 131/67; PULSE 108; RESP 18; TEMP 98.2; O2SAT 97
[2016-09-06] MEDS: DIVALPROEX DR 500 MG TABEC PO SCH (20:41)
[2016-09-06] MEDS ORDERED: DIVALPROEX DR 500 MG TABEC PO SCH (21:00)
[2016-09-07 06:29] VITALS: BP 123/59; PULSE 81; RESP 15; TEMP 98.1; O2SAT 97
[2016-09-07] MEDS: ACETAMINOPHEN 325 MG TAB PO PRN ×2 (06:48→21:26)
[2016-09-07] MEDS: DIVALPROEX DR 500 MG TABEC PO SCH ×2 (08:57→20:53)
[2016-09-07] MEDS: NICOTINE 14 MG/24 HR PATCH TD SCH (08:57)
[2016-09-07] MEDS: ARIPiprazole 5 MG TAB PO SCH (08:57)
[2016-09-07] MEDS: clonazePAM 0.5 MG TAB PO SCH ×2 (08:57→20:53)
[2016-09-07] MEDS: hydrALAZINE HCL 25 MG TAB PO SCH ×2 (08:58→20:52)
[2016-09-07] MEDS: MORPHINE SULFATE 60 MG CONTROLLED RELEASE TAB PO SCH ×3 (08:59→22:27)
[2016-09-07] MEDS: DOCUSATE SODIUM 50 MG/SENNA 8.6 MG TAB PO SCH ×2 (08:59→20:52)
[2016-09-07] MEDS: POLYETHYLENE GLYCOL 17 GM PKG PO SCH (09:00)
--- NOTE | 2016-09-07 10:04 | HHI.PYPN ---
Subjective Remarks On psychiatric reevaluation today the patient is found in her room watching TV, she reports that she is feeling much better today, that she is taking her medications, is sleeping much better than when she came, last night especially she slept really good, and she requests to be discharged home. Patient seems to be more insightful about her psychiatric problems and more receptive to a self-help, but she still very labile, irritable, paranoid and when what she was told that she was not going home today she became very tearful and even disorganized stating "my dog waiting for me my dog is going to if he doesn' t see me today, "My feed are swollen because I haven't spoken with my dog. I am here because I am cyber-hunted", but she was sensitive to verbal de-escalation and accepted that she needs to stay in the hospital for stabilization. I spent some time educating her about what allie is and the importance of taking the medication and following medical recommendations. Review of Systems Other No new significant somatic complaints today Objective Alert: Yes [place]: Person, Place, Date, Situation Mood: Agitated, Other (l;ability of mood) Affect: Labile, Other (irritable) Memory Intact: Immediate, Comment (not formally tested but it seems intact) Hallucinations: Other (she denies) Delusions: Yes Delusion Type: Paranoid Suicidal: Ideation (negative) Homicidal: Ideation (negative) Insight/Judgement poor Labs Test 09/06/16 11:00 Valproic Acid (Depakene) Level 51 MCG/ML Vitals/IOs Vital Signs Date Time Temp Pulse Resp B/P Pulse Ox O2 Delivery O2 Flow Rate FiO2 09/07/16 06:29 98.1 81 15 123/59 97 Intake and Output 09/06/16 09/06/16 09/06/16 07:59 15:59 23:59 Intake Total 120 ml 800 ml 1560 ml Balance 120 ml 800 ml 1560 ml Assessment & Plan Problem List: (1) Psychotic disorder ICD Code: F29 (2) Bipolar 1 disorder, mixed Assessment & Plan: Patient continues to be acutely manic, delusional, paranoid. She seems to be responding slowly to psychotropics, but still very unstable. We'll continue same psychotropic regimen today. Depakote levels were reviewed. Support, psychoeducation and motivation provided. ICD Code: F31.60 Assessment & Plan Estimated LOS: days Justification for Cont. Inpt. Patient is acutely manic, paranoid and delusional. She has an increased risk of danger to herself due to the level of disorganization and poor judgment. Needs stabilization. Request HC Surrog/Guard Advoc?: Yes Problem Qualifiers (1) Psychotic disorder: Qualified Code: F29 - Psychosis, unspecified psychosis type Manpreet Ely MD Sep 07, 2016 10:04
--- NOTE | 2016-09-07 11:58 | HHI.PR ---
Subjective Remarks Follow-up visit hypothyroidism, hypertension, sleep apnea, cerebral palsy. Patient seen today. She is being walked by physical therapy using walker. She also has orthopedic boot in place. Patient is very angry and agitated, states she is not crazy and that the psychiatrist needs to speak with her primary doctor in [place]. Patient unable to concentrate on topic, disorganized thoughts secondary to agitation. States she feels she had chest pain yesterday but it is gone today. Denies pain and discomfort. Denies SOB/ dyspnea, headaches, dizziness. Denies fevers, chills, n/v/d. Objective Vitals Vital Signs Date Time Temp Pulse Resp B/P Pulse Ox O2 Delivery O2 Flow Rate FiO2 09/07/16 06:29 98.1 81 15 123/59 97 09/06/16 21:43 16 09/06/16 21:43 16 09/06/16 20:16 98.2 108 18 131/67 97 I/O 09/06/16 09/06/16 09/06/16 09/07/16 09/07/16 09/07/16 07:00 15:00 23:00 07:00 15:00 23:00 Intake Total 120 ml 800 ml 1560 ml 240 ml 240 ml Balance 120 ml 800 ml 1560 ml 240 ml 240 ml Intake Oral 120 ml 800 ml 1560 ml 240 ml 240 ml # Voids 1 2 1 1 Result Diagram: 09/03/16 0816 Imaging Last Impressions Lower Extremity Ultrasound 09/04/16 0000 Signed Impressions: Service Date/Time: Sunday, September 04, 2016 18:40 - CONCLUSION: No DVT of either lower extremity. Gareth Ng MD Foot X-Ray 09/04/16 0000 Signed Impressions: Service Date/Time: Sunday, September 04, 2016 17:08 - CONCLUSION: 1. Mildly displaced and mildly comminuted oblique mid shaft fracture of the fifth metacarpal. 2. Hallux valgus with chronic degenerative changes. Gareth Ng MD Ankle X-Ray 09/04/16 0000 Signed Impressions: Service Date/Time: Sunday, September 04, 2016 17:09 - CONCLUSION: No fracture or subluxation of the right ankle. Gareth Ng MD Head CT 08/31/16 0550 Signed Impressions: Service Date/Time: Wednesday, August 31, 2016 06:37 - CONCLUSION: No acute disease. Jitendra Berrios MD Objective Remarks GENERAL: This is a well-nourished, agitated. SKIN: No rashes, ecchymoses or lesions. Cool and dry. HEAD: Atraumatic. Normocephalic. No temporal or scalp tenderness. EYES: Extraocular motions intact. No scleral icterus. No injection or drainage. CARDIOVASCULAR: Regular rate and rhythm without murmurs, gallops, or rubs. RESPIRATORY: Clear to auscultation. Breath sounds equal bilaterally. No wheezes , rales, or rhonchi. GASTROINTESTINAL: Abdomen soft, non-tender, nondistended. MUSCULOSKELETAL: Right foot ankle and calf edematous with ecchymosis into foot area. Right orthopedic boot in place. NEUROLOGICAL: Awake and alert. Agitated. Speech is pressured. 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 Patient is currently inpatient psychiatric center with been consulted for assistance with medical management regarding cerebral palsy thyroid disease and first schizophrenic episode at age 56. Psychotic disorder management per psychiatric team Cerebral palsy Continue home pain medication MS Contin SR 60 mg twice a day and morphine immediate release 15 mg 4 times a day as needed Subclinical Hyperthyroidism TSH 0.211, T4 10.7 Restart home medication Levothyroxine 100mcg daily Hypertension continue patient's home hydralazine HLD - continue home med statin. Hypokalemia potassium resolved magnesium 2.0 right ankle and foot edema- x ray right foot reviewed and reveals: Mildly displaced and mildly comminuted oblique mid shaft fracture of the fifth metacarpal. 2. Hallux valgus with chronic degenerative changes- consult orthopedics US BLE negative for DVT Right ankle X ray no acute No fracture or subluxation of the right ankle Orthopedic consult foot fracture is nonoperative. Recommended PT and walking boot full weight bearing as tolerated. High risk for fall. Assisted with out of bed to chair and activities. Recommended to be DC'd to rehabilitation. Sleep apnea patient may use home BiPAP machine DVT prophylaxis patient is ambulatory Discussed with patient as well as nursing Written by Araceli Houser, on behalf of Dr. David on 09/07/16 at 13:45. Attending Statement All or portions of this note were transcribed by uli Houser. I, Dr. Pablo Tam personally performed the history, physical exam, and medical decision making; and confirmed the accuracy of the information in the transcribed note. Authenticated by Dr. Pablo Tam on 09/08/16 at 09:54. Problem Qualifiers (1) Psychotic disorder: Qualified Code: F29 - Psychosis, unspecified psychosis type Araceli Monaco Sep 07, 2016 11:58 Pablo White MD Sep 08, 2016 09:54
[2016-09-07] MEDS: PRAVASTATIN SOD 40 MG TAB PO SCH ×2 (15:45→20:53)
[2016-09-07 19:23] VITALS: BP_SYST 109; BP_SYST 132; BP_DIAS 66; BP_DIAS 71; PULSE 83; PULSE 87; RESP 16; TEMP 98.1; TEMP 98.2; O2SAT 99
[2016-09-08] MEDS: LEVOTHYROXINE SODIUM 100 MCG TAB PO SCH (05:31)
[2016-09-08] MEDS: MORPHINE SULFATE 15 MG TAB PO PRN ×2 (05:32→09:21)
[2016-09-08] MEDS: ACETAMINOPHEN 325 MG TAB PO PRN ×2 (05:32→09:22)
[2016-09-08 05:56] VITALS: BP 137/94; PULSE 83; RESP 16; TEMP 98.1; O2SAT 95
[2016-09-08] MEDS: POLYETHYLENE GLYCOL 17 GM PKG PO SCH (09:00)
[2016-09-08] MEDS: DIVALPROEX DR 500 MG TABEC PO SCH ×2 (09:10→20:51)
[2016-09-08] MEDS: HYDROCHLOROTHIAZIDE 25 MG TAB PO SCH (09:11)
[2016-09-08] MEDS: DOCUSATE SODIUM 50 MG/SENNA 8.6 MG TAB PO SCH ×2 (09:11→20:51)
[2016-09-08] MEDS: clonazePAM 0.5 MG TAB PO SCH ×2 (09:12→20:52)
[2016-09-08] MEDS: hydrALAZINE HCL 25 MG TAB PO SCH ×2 (09:12→20:52)
[2016-09-08] MEDS: ARIPiprazole 5 MG TAB PO SCH (09:12)
[2016-09-08] MEDS: NICOTINE 14 MG/24 HR PATCH TD SCH (09:14)
--- NOTE | 2016-09-08 11:45 | HHI.PYPN ---
Subjective Remarks PAtient was seen for psychiatric reevaluation today, patient continues to be agitated, demanding to be discharged, talkative, disorganized, needs to be redirected often, she seems to accept the fact that she is manic and delusional , which is a progress in her mental status, but continues to be very paranoid toward the staff and her significant other stating that we are plotting to have her incarcerated in the unit and she is "cyber hunted" by "computer people who is controlling the world". During the evaluation patient presents a marked mood lability, moment she can be in agreement with treatment and recommendation , smiling and laughing about her conditions, with a very good sense of humor, but the second later she will explode becoming tearful and screaming and demanding to be discharged. The patient has been fully compliant with medications. By nurse in charge patient has been sleeping okay, she hasn't been hostile or aggressive in the unit, occasionally agitated needing redirection. Patient is fully oriented 3, with impaired attention span most primarily related with her allie. Review of Systems Constitutional: DENIES: Diaphoretic episodes, Fatigue, Fever, Weight gain, Weight loss, Chills, Dizziness, Change in appetite, Night Sweats Endocrine: DENIES: Abnorml menstrual pattern, Heat/cold intolerance, Polydipsia , Polyuria, Polyphagia Eyes: DENIES: Blurred vision, Diplopia, Eye inflammation, Eye pain, Vision loss , Photosensitivity, Double Vision Ears, nose, mouth, throat: DENIES: Tinnitus, Hearing loss, Vertigo, Nasal discharge, Oral lesions, Throat pain, Hoarseness, Ear Pain, Running Nose, Epistaxis, Sinus Pain, Toothache, Odynophagia Cardiovascular: DENIES: Chest pain, Palpitations, Syncope, Dyspnea on Exertion , PND, Lower Extremity Edema, Orthopnea, Claudication Gastrointestinal: DENIES: Abdominal pain, Black stools, Bloody stools, Constipation, Diarrhea, Nausea, Vomiting, Difficulty Swallowing, Anorexia Musculoskeletal: COMPLAINS OF: Back pain (also pain in her lower extremities), DENIES: Joint pain, Muscle aches, Stiffness, Joint Swelling, Neck pain Integumentary: DENIES: Abnormal pigmentation, Pruritus, Rash, Nail changes, Breast masses, Breast skin changes, Nipple discharge Hematologic/lymphatic: DENIES: Bruising, Lymphadenopathy Immunologic/allergic: DENIES: Eczema, Urticaria Psychiatric: COMPLAINS OF: Mood changes, Agitation, Delusions, DENIES: Anxiety , Confusion, Depression, Hallucinations, Suicidal Ideation, Homicidal Ideation Objective Alert: Yes [place]: Person, Place, Date, Situation Mood: Agitated, Angry, Other Affect: Labile, Other (irritable) Memory Intact: Immediate, Recent, Remote, Comment Hallucinations: Other (she denies) Delusions: Yes (pursecutory ) Delusion Type: Paranoid (of being ciber hunted") Suicidal: Ideation (negative) Homicidal: Ideation (negative) Insight/Judgement poor Vitals/IOs Vital Signs Date Time Temp Pulse Resp B/P Pulse Ox O2 Delivery O2 Flow Rate FiO2 09/08/16 05:56 98.1 83 16 137/94 95 Intake and Output 09/07/16 09/07/16 09/08/16 08:00 16:00 00:00 Intake Total 240 ml 960 ml 720 ml Balance 240 ml 960 ml 720 ml Assessment & Plan Problem List: (1) Psychotic disorder ICD Code: F29 (2) Bipolar 1 disorder, mixed Assessment & Plan: Patient continues to be acutely manic, irritable, very labile and with frequent mood swings, periodic agitation and disorganized behavior, also very frequent crying spells, with marked paranoid delusions about being put age and incarcerated in the unit with the complicity of her significant and other and also being "cyber hunted by people that control us by computer programs". Will increase the Abilify to 10 mg for mood stabilization and also for psychosis The next step if the patient continued to be moodly dysregulated will be to increase Depakote Social work intervention to arrange a potential meeting with significant other Patient will be taken to [place] [address] tomorrow Brief supportive psychotherapy and psychoeducation provided ICD Code: F31.60 Assessment & Plan Estimated LOS: days Justification for Cont. Inpt. Patient continues to be acutely psychotic and manic and needs to continue her psychiatric hospitalization for stabilization Discharge Planning Most probably discharged back home with significant other Request Surrog/Guard Advoc?: Yes Problem Qualifiers (1) Psychotic disorder: Qualified Code: F29 - Psychosis, unspecified psychosis type Manpreet Ely MD Sep 08, 2016 11:45
--- NOTE | 2016-09-08 12:57 | HHI.PR ---
Subjective Remarks Follow-up psychotic disorder, fracture of first metatarsal bone of the right foot, cerebral palsy, subclinical hyperthyroidism Patient is very agitated, talking on the phone asking me to speak with his brother. As per nursing staff, the patient is calm at times and then suddenly becomes agitated. Patient denies chest pain or shortness of breath. She has been ambulating with a walker Pain is controlled, vital signs are stable Objective Vitals Vital Signs Date Time Temp Pulse Resp B/P Pulse Ox O2 Delivery O2 Flow Rate FiO2 09/08/16 05:56 98.1 83 16 137/94 95 09/07/16 19:23 98.1 87 16 132/71 99 I/O 09/07/16 09/07/16 09/07/16 09/08/16 09/08/16 09/08/16 07:00 15:00 23:00 07:00 15:00 23:00 Intake Total 240 ml 480 ml 1200 ml 240 ml 240 ml Balance 240 ml 480 ml 1200 ml 240 ml 240 ml Intake Oral 240 ml 480 ml 1200 ml 240 ml 240 ml # Voids 1 3 1 # Bowel Movements 0 Imaging Last Impressions Lower Extremity Ultrasound 09/04/16 0000 Signed Impressions: Service Date/Time: Sunday, September 04, 2016 18:40 - CONCLUSION: No DVT of either lower extremity. Gareth Ng MD Foot X-Ray 09/04/16 0000 Signed Impressions: Service Date/Time: Sunday, September 04, 2016 17:08 - CONCLUSION: 1. Mildly displaced and mildly comminuted oblique mid shaft fracture of the fifth metacarpal. 2. Hallux valgus with chronic degenerative changes. Gareth Ng MD Ankle X-Ray 09/04/16 0000 Signed Impressions: Service Date/Time: Sunday, September 04, 2016 17:09 - CONCLUSION: No fracture or subluxation of the right ankle. Gareth Ng MD Head CT 08/31/16 0550 Signed Impressions: Service Date/Time: Wednesday, August 31, 2016 06:37 - CONCLUSION: No acute disease. Jitendra Berrios MD Objective Remarks GENERAL: This is a well-nourished, well-developed patient, in no apparent distress. SKIN: No rashes, ecchymoses or lesions. Cool and dry. HEAD: Atraumatic. Normocephalic. No temporal or scalp tenderness. EYES: Extraocular motions intact. No scleral icterus. No injection or drainage. CARDIOVASCULAR: Regular rate and rhythm without murmurs, gallops, or rubs. RESPIRATORY: Clear to auscultation. Breath sounds equal bilaterally. No wheezes , rales, or rhonchi. GASTROINTESTINAL: Abdomen soft, non-tender, nondistended. MUSCULOSKELETAL: Right foot ankle and calf edematous with ecchymosis into foot area. Patient also has bilateral foot deformity and lower extremity contractures. Walking boot on right foot. NEUROLOGICAL: Awake and alert. Motor and sensory grossly within normal limits. 4 -5out of 5 muscle strength in all muscle groups. Normal speech. Procedures None Medications and IVs Current Medications Medications (Trade) Dose Ordered Sig/Cody Route Start Time Stop Time Status Last Admin (Tylenol) 650 mg Q4H PRN PO 09/01/16 09:45 09/08/16 09:22 (Milk Of Magnesia Liq) 30 ml DAILY PRN PO 09/01/16 09:45 (Mag-Al Plus Susp Liq) 30 ml Q6H PRN PO 09/01/16 09:45 (Apresoline) 25 mg BID PO 09/01/16 09:45 09/08/16 09:12 (Habitrol 14 Mg Patch.24 Hr) 1 patch DAILY TD 09/03/16 10:30 09/08/16 09:14 (Msir) 15 mg Q6H PRN PO 09/03/16 10:45 09/08/16 09:21 (Mavis-Colace) 2 tab BID PO 09/03/16 21:00 09/08/16 09:11 (Miralax) 17 gm DAILY PO 09/04/16 09:00 09/06/16 08:20 (Oramorph Sr) 60 mg Q12HR PO 09/03/16 21:00 09/07/16 22:27 (Ativan) 1 mg Q12H PRN PO 09/03/16 13:45 (Ativan Inj) 1 mg Q12H PRN IM 09/03/16 23:00 09/03/16 23:15 (Depakote Dr) 500 mg Q12HR PO 09/06/16 21:00 09/08/16 09:10 (KlonoPIN) 0.5 mg Q12HR PO 09/06/16 10:45 09/08/16 09:12 (Hydrodiuril) 25 mg DAILY PO 09/08/16 09:00 09/08/16 09:11 (Synthroid) 100 mcg DAILY@0600 PO 09/08/16 06:00 09/08/16 05:31 (Pravachol) 40 mg HS PO 09/07/16 15:45 09/07/16 20:53 (Abilify) 10 mg DAILY PO 09/09/16 09:00 Urinary Catheter: No Vascular Central Line Catheter: No A/P Problem List: (1) Psychotic disorder ICD Code: F29 Status: Acute (2) Fracture of fifth metatarsal bone of right foot ICD Code: S92.351A Status: Acute Assessment and Plan This is a 56 year old female patient with past medical history which includes cerebral palsy, hypothyroidism, sleep apnea and wears CPAP intermittently and 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 Patient is currently inpatient psychiatric center with been consulted for assistance with medical management regarding cerebral palsy thyroid disease and first schizophrenic episode at age 56. Psychotic disorder management per psychiatric team - Abilify dose increased to 10 minutes by mouth daily. Continue Depakote 500 mg by mouth every 12 hours. Cerebral palsy Continue home pain medication MS Contin SR 60 mg twice a day and morphine immediate release 15 mg 4 times a day as needed Subclinical Hyperthyroidism TSH 0.211, total T4 is 10.2. I will check free T4 Continue levothyroxine 100 g daily. Hypertension continue patient's home hydralazine HLD - continue home med statin. Hypokalemia potassium resolved magnesium 2.0 right ankle and foot edema- x ray right foot reviewed and reveals: Mildly displaced and mildly comminuted oblique mid shaft fracture of the fifth metacarpal. 2. Hallux valgus with chronic degenerative changes- consult orthopedics US BLE negative for DVT Right ankle X ray no acute No fracture or subluxation of the right ankle Orthopedic consult foot fracture is nonoperative. Recommended PT and walking boot full weight bearing as tolerated. High risk for fall. Assisted with out of bed to chair and activities. Recommended to be DC'd to rehabilitation. Sleep apnea patient may use home BiPAP machine DVT prophylaxis patient is ambulatory Discussed with patient as well as nursing Problem Qualifiers (1) Psychotic disorder: Qualified Code: F29 - Psychosis, unspecified psychosis type Pablo White MD Sep 08, 2016 12:57
[2016-09-08 18:00] VITALS: BP 128/85; PULSE 94; RESP 18; TEMP 98.1; O2SAT 96
[2016-09-08] MEDS: PRAVASTATIN SOD 40 MG TAB PO SCH (20:51)
[2016-09-08] MEDS: MORPHINE SULFATE 60 MG CONTROLLED RELEASE TAB PO SCH (20:52)
[2016-09-09] MEDS: LEVOTHYROXINE SODIUM 100 MCG TAB PO SCH (05:39)
[2016-09-09] MEDS: MORPHINE SULFATE 15 MG TAB PO PRN (05:40)
[2016-09-09 05:56] VITALS: BP 115/74; PULSE 86; RESP 16; TEMP 97.7; O2SAT 96
[2016-09-09] MEDS ORDERED: ARIPiprazole 5 MG TAB PO SCH (09:00)
[2016-09-09] MEDS: POLYETHYLENE GLYCOL 17 GM PKG PO SCH (09:00)
[2016-09-09] MEDS: NICOTINE 14 MG/24 HR PATCH TD SCH (09:00)
[2016-09-09] MEDS: DIVALPROEX DR 500 MG TABEC PO SCH (10:08)
[2016-09-09] MEDS: MORPHINE SULFATE 60 MG CONTROLLED RELEASE TAB PO SCH (10:08)
[2016-09-09] MEDS: DOCUSATE SODIUM 50 MG/SENNA 8.6 MG TAB PO SCH (10:09)
[2016-09-09] MEDS: clonazePAM 0.5 MG TAB PO SCH (10:10)
[2016-09-09] MEDS: hydrALAZINE HCL 25 MG TAB PO SCH (10:10)
[2016-09-09] MEDS: HYDROCHLOROTHIAZIDE 25 MG TAB PO SCH (10:11)
[2016-09-09] MEDS ORDERED: PRAV40TA PO (10:20)
[2016-09-09] MEDS ORDERED: ARIP1TAB11 PO (10:20)
[2016-09-09] MEDS ORDERED: CLON.5 PO (10:20)
[2016-09-09] MEDS ORDERED: DIVA500T PO (10:20)
[2016-09-09] MEDS ORDERED: MORP1TAB26 PO (10:20)
[2016-09-09] MEDS ORDERED: LEVO.1 PO (10:20)
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
[2016-09-09 11:13] VITALS: BP 115/74; PULSE 86; RESP 16; TEMP 97.7; O2SAT 96
--- NOTE | 2016-09-09 11:23 | HHI.PR ---
Subjective Remarks no major overnight events no cp/sob mood seems to be improved denies fevers/chills ambulating with walker and orthopedic foot. Objective Vitals Vital Signs Date Time Temp Pulse Resp B/P Pulse Ox O2 Delivery O2 Flow Rate FiO2 09/09/16 05:56 97.7 86 16 115/74 96 09/08/16 18:00 98.1 94 18 128/85 96 I/O 09/08/16 09/08/16 09/08/16 09/09/16 09/09/16 09/09/16 07:00 15:00 23:00 07:00 15:00 23:00 Intake Total 240 ml 600 ml 1200 ml 240 ml 240 ml Balance 240 ml 600 ml 1200 ml 240 ml 240 ml Intake Oral 240 ml 600 ml 1200 ml 240 ml 240 ml # Voids 1 2 2 1 # Bowel Movements 1 Imaging Last Impressions Lower Extremity Ultrasound 09/04/16 0000 Signed Impressions: Service Date/Time: Sunday, September 04, 2016 18:40 - CONCLUSION: No DVT of either lower extremity. Gareth Ng MD Foot X-Ray 09/04/16 0000 Signed Impressions: Service Date/Time: Sunday, September 04, 2016 17:08 - CONCLUSION: 1. Mildly displaced and mildly comminuted oblique mid shaft fracture of the fifth metacarpal. 2. Hallux valgus with chronic degenerative changes. Gareth Ng MD Ankle X-Ray 09/04/16 0000 Signed Impressions: Service Date/Time: Sunday, September 04, 2016 17:09 - CONCLUSION: No fracture or subluxation of the right ankle. Gareth Ng MD Head CT 08/31/16 0550 Signed Impressions: Service Date/Time: Wednesday, August 31, 2016 06:37 - CONCLUSION: No acute disease. Jitendra Berrios MD Objective Remarks GENERAL: This is a well-nourished, well-developed patient, in no apparent distress. SKIN: No rashes, ecchymoses or lesions. Cool and dry. HEAD: Atraumatic. Normocephalic. No temporal or scalp tenderness. EYES: Extraocular motions intact. No scleral icterus. No injection or drainage. CARDIOVASCULAR: Regular rate and rhythm without murmurs, gallops, or rubs. RESPIRATORY: Clear to auscultation. Breath sounds equal bilaterally. No wheezes , rales, or rhonchi. GASTROINTESTINAL: Abdomen soft, non-tender, nondistended. MUSCULOSKELETAL: Right foot ankle and calf edematous with ecchymosis into foot area. Patient also has bilateral foot deformity and lower extremity contractures. Walking boot on right foot. NEUROLOGICAL: Awake and alert. Motor and sensory grossly within normal limits. 4 -5out of 5 muscle strength in all muscle groups. Normal speech. Procedures None Medications and IVs Current Medications Medications (Trade) Dose Ordered Sig/Cody Route Start Time Stop Time Status Last Admin (Tylenol) 650 mg Q4H PRN PO 09/01/16 09:45 09/08/16 09:22 (Milk Of Magnesia Liq) 30 ml DAILY PRN PO 09/01/16 09:45 (Mag-Al Plus Susp Liq) 30 ml Q6H PRN PO 09/01/16 09:45 (Apresoline) 25 mg BID PO 09/01/16 09:45 09/09/16 10:10 (Habitrol 14 Mg Patch.24 Hr) 1 patch DAILY TD 09/03/16 10:30 09/09/16 09:00 (Msir) 15 mg Q6H PRN PO 09/03/16 10:45 09/09/16 05:40 (Mavis-Colace) 2 tab BID PO 09/03/16 21:00 09/09/16 10:09 (Miralax) 17 gm DAILY PO 09/04/16 09:00 09/06/16 08:20 (Oramorph Sr) 60 mg Q12HR PO 09/03/16 21:00 09/09/16 10:08 (Ativan) 1 mg Q12H PRN PO 09/03/16 13:45 09/08/16 17:23 (Ativan Inj) 1 mg Q12H PRN IM 09/03/16 23:00 09/03/16 23:15 (Depakote Dr) 500 mg Q12HR PO 09/06/16 21:00 09/09/16 10:08 (KlonoPIN) 0.5 mg Q12HR PO 09/06/16 10:45 09/09/16 10:10 (Hydrodiuril) 25 mg DAILY PO 09/08/16 09:00 09/09/16 10:11 (Synthroid) 100 mcg DAILY@0600 PO 09/08/16 06:00 09/09/16 05:39 (Pravachol) 40 mg HS PO 09/07/16 15:45 09/08/16 20:51 (Abilify) 10 mg DAILY PO 09/09/16 09:00 09/09/16 10:09 Urinary Catheter: No Vascular Central Line Catheter: No A/P Problem List: (1) Psychotic disorder ICD Code: F29 Status: Acute (2) Fracture of fifth metatarsal bone of right foot ICD Code: S92.351A Status: Acute Assessment and Plan This is a 56 year old female patient with past medical history which includes cerebral palsy, hypothyroidism, sleep apnea and wears CPAP intermittently and 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 Patient is currently inpatient psychiatric center with been consulted for assistance with medical management regarding cerebral palsy thyroid disease and first schizophrenic episode at age 56. Psychotic disorder management per psychiatric team - Continue Abilify and Depakote. Cerebral palsy Continue home pain medication MS Contin SR 60 mg twice a day and morphine immediate release 15 mg 4 times a day as needed Subclinical Hyperthyroidism TSH 0.211, total T4 is 10.2. I will check free T4 Continue levothyroxine 100 g daily. Hypertension continue patient's home hydralazine HLD - continue home med statin. Hypokalemia potassium resolved magnesium 2.0 right ankle and foot edema- x ray right foot reviewed and reveals: Mildly displaced and mildly comminuted oblique mid shaft fracture of the fifth metacarpal. 2. Hallux valgus with chronic degenerative changes- consult orthopedics US BLE negative for DVT Right ankle X ray no acute No fracture or subluxation of the right ankle Orthopedic consult foot fracture is nonoperative. Recommended PT and walking boot full weight bearing as tolerated. High risk for fall. Assisted with out of bed to chair and activities. Recommended to be DC'd to rehabilitation. PT recommends discharge to rehab versus home PT. Sleep apnea patient may use home BiPAP machine DVT prophylaxis patient is ambulatory Discussed with patient as well as nursing Discharge Planning Patient is medically cleared to be discharged - needs home PT if not agreeable to rehab. Problem Qualifiers (1) Psychotic disorder: Qualified Code: F29 - Psychosis, unspecified psychosis type Pablo White MD Sep 09, 2016 11:23
--- NOTE | 2016-09-09 11:25 | HHI.FF ---
Face to Face Verification Diagnosis: (1) Fracture of fifth metatarsal bone of right foot (2) Psychotic disorder (3) Psychosis (4) Cerebral palsy Physical Therapy Order: Improve ambulation Home Health Nursing Order: Medical education Nursing assessment with vital signs I have seen patient Lesly Worthington on 09/09/16. My clinical findings support the need for the requested home health care services because: Need for psychosocial assistance Impaired cognition/judgement High risk of falls I certify that my clinical findings support that this patient is homebound because: Unsafe to leave home unassisted Need for psychosocial assistance Unable to use public transportation Pablo White MD Sep 09, 2016 11:25
== END 2016-09-09 13:30 | disposition home or self-care (01) | DRG 885 ==
LOC: NEPC 04:10 → NEDA 09-01 09:35 → H270 09-01 10:24 → H4EA 09-01 22:10
PROVIDERS: ADMIT Psychiatry & Neurology Psychiatry; ATTEND Psychiatry & Neurology Psychiatry
DX: F31.60 Bipolar disorder, current episode mixed, unspecified (principal); Z78.1 Physical restraint status; I10 Essential (primary) hypertension; F22 Delusional disorders; G80.9 Cerebral palsy, unspecified; F17.210 Nicotine dependence, cigarettes, uncomplicated; G47.30 Sleep apnea, unspecified; E05.90 Thyrotoxicosis, unspecified without thyrotoxic crisis or storm; H54.41 Blindness, right eye, normal vision left eye; E87.6 Hypokalemia; S92.351A Displaced fracture of fifth metatarsal bone, right foot, initial encounter for closed fracture; S99.101A Unspecified physeal fracture of right metatarsal, initial encounter for closed fracture; W19.XXXA Unspecified fall, initial encounter; Y93.9 Activity, unspecified; Y92.9 Unspecified place or not applicable; Z80.1 Family history of malignant neoplasm of trachea, bronchus and lung; R07.9 Chest pain, unspecified; E78.5 Hyperlipidemia, unspecified; M20.10 Hallux valgus (acquired), unspecified foot
CPT/HCPCS: 70450; 73610; 73630; 80048; 80053; 80061; 80164; 80307; 81001; 83036; 83735; 84436; 84439; 84443; 85025; 93970; 96372; J1200; J1630; J2060; J3480; L2114; P9612